=== PATIENT | female | born 1980 | race Caucasian/White ===

== ENCOUNTER 2018-11-20 22:34 | Emergency (ER) | payer OTHER ==
[~2018-11-20] VITALS: Ht 170.2 cm; Wt 107.0 kg
[~2018-11-20 22:34] MED LIST: ACHD5005 PO; BUTA1TAB55 PO; DCS100C PO; DICY10CA26 PO; DOCU100C37 PO; FAMO20TA5 PO; IBP800T PO; IBUP-1780 PO; NITR100C44 PO; OCP; OMEP40CA36 PO; ONDA4TAB11 PO; ONDA8TAB9 PO; ONDAN4ODT PO; OXYC-465 PO; PREN1TAB14 PO; PREN1TAB39; PREN1TAB71 PO; SCR1T PO; TRAM50TA2 PO; VITA1TAB17 PO
--- OUTSIDE RECORDS SUMMARY | 2018-11-20 22:40 | XMS REPORT ---
Author Author Migration, Doctor Organization [facility] Address Unknown Phone Unavailable Care Team Providers Care Fine Arts Instructor Name Role Phone Migration, Doctor Unavailable Unavailable PROBLEMS Type Condition ICD9-CM Code XPB45-PD Code Onset Dates Condition Status SNOMED Code Problem Anxiety F41.9 Active 88984796 Problem Generalized anxiety disorder F41.1 Active [id number] ALLERGIES No Information ENCOUNTERS Encounter Location Date Diagnosis [facility] [address] [address] Nov, [facility] [address] [address] Oct, Bronchitis J40 [facility] [address] [address]- 68[address] Aug, Generalized anxiety disorder F41.1 [facility] [address] [address] Jul, Oral thrush B37.0 [facility] [address] [address] Jun, Generalized anxiety disorder F41.1 [facility] [address] [address]- 6163 May, Encounter for immunization Z23 [facility] [id number] [place] [address]45- 9121 Apr, Anxiety F41.9 [facility] [address] [address]- 2013 Mar, Anxiety F41.9 [facility] [id number] [place] [address] 80507- 0714 Mar, [facility] [address] [address] Mar, Seasonal allergic rhinitis, unspecified trigger J30.2 and Cough R05 [facility] [address] [place] [address] 61625- 2630 Oct, [facility] [id number] [place] [address] 70497- 6672 Oct, Positive skin test for tuberculosis R76.11 [facility] [id number] [place] [address]16 -8422 Oct, Positive skin test for tuberculosis R76.11 [facility] [address] [place] [address] 29695- 6162 Oct, School physical exam Z02.0 ; Visit for TB skin test Z11.1 and Encounter for immunization Z23 [facility] [address] [place] [address]39 -3446 Jun, Pharyngitis due to other organism J02.8 [place] [id number] [place] [address] 82127- 2832 Feb, Constipation 564.00 [place] [address] [id number] [place] [address] 66936- 3696 Nov, [facility] [address] [place] [address] 10416- 3454 Nov, [facility] [address] [place] [address] 11720- 4076 Oct, [facility] [id number] [place] [address] 6[address]- 1956 Oct, [facility] [id number] [place] [address] 57578- 8611 Sep, [facility] [address] [place] [address] 36930- 3582 Sep, [facility] [id number] [place] [address] 32101- 6704 Aug, [facility] [place] [facility] [address] [id number] [place] [address]- 5717 Aug, [facility] [place] [facility] [address] [id number] [place] [address]- 8762 Jun, [facility] [place] [facility] [address] [id number] [place] [address]- 8848 Jun, [facility] [place] [facility] [address] [id number] [place] [address]- 2732 May, [facility] [place] [facility] [address] [id number] [place] [address]- 0800 May, [facility] [place] [facility] [address] [id number] [place] [address]- 9686 Apr, [facility] [place] [facility] [address] [id number] [place] [address]- 8046 Apr, [facility] [place] [facility] [address] [id number] [place] [address]- 4311 Mar, [facility] [place] [facility] [address] [id number] [place] [address]- 0517 Mar, [facility] [place] [facility] [address] [id number] [place] [address]- 6103 Mar, [facility] [place] [facility] [address] [id number] [place] [address]- 4533 Mar, [facility] [place] [facility] [address] [id number] [place] [address]- 0296 Mar, [facility] [place] [facility] [address] [id number] [place] [address]- 8654 Mar, [facility] [place] [facility] [address] [id number] [place] [address]- 0774 Feb, [facility] [place] [facility] [address] [id number] [place] [address]- 3244 Feb, [facility] [place] [facility] [address] [id number] [place] [address]- 2546 Jan, [facility] [address] [facility] [id number] [place] [address]- 2546 Jan, [facility] [address] [facility] [id number], [place] [address]- 2546 Jun, [facility] [address] [facility] [id number] [place] [address]- 2546 Jun, IMMUNIZATIONS No Known Immunizations SOCIAL HISTORY Never Assessed REASON FOR VISIT [facility] PLAN OF CARE VITAL SIGNS MEDICATIONS Medication Instructions Dosage Frequency Start Date End Date Duration Status trazodone 50 mg take 0.5 tablet by Oral route 1 time per day at bedtime for sleep Aug, Active Azithromycin 250 mg 2 Tablet by Oral route on day 1 then take 1 daily for 4 days take with food Oct, Active Multivitamin 1 tablet by Oral route 1 time per day Mar, Active Latuda 20 mg 1 tablet by Oral route 1 time per day for 14 days w/at least 350 calories Mar, Active NuvaRing 0.12-0.015 mg/24 hr 1 ea by Vaginal route every 4 weeks Insert ring and remove every 21 days Mar, Active PredniSONE 10 mg 1 Tablet 2 times per day for 5 days Take at 8 am and noon. Oct, Active RESULTS No Results PROCEDURES No Known procedures INSTRUCTIONS MEDICATIONS ADMINISTERED No Known Medications MEDICAL (GENERAL) HISTORY Type Description Date Surgical History DNC 2009 Surgical History 2012,2015 Hospitalization History surgeries Hospitalization History vomiting 2012
--- OUTSIDE RECORDS SUMMARY | 2018-11-20 22:41 | XMS REPORT ---
Author Author VALENTÍN TONY Organization [facility] Address [address] [place] [address] Care Team Providers Care Telemarketing Sales Representative Name Role Phone VALENTÍN TONY Unavailable PROBLEMS Type Condition ICD9-CM Code ZWB47-BO Code Onset Dates Condition Status SNOMED Code Problem Anxiety F41.9 Active [id number] ALLERGIES No Known Allergies ENCOUNTERS Encounter Location Date Diagnosis [place] [address] [address] Apr, Anxiety F41.9 [place] [address] [address]- 3161 Mar, Anxiety F41.9 [facility] [id number] [place] [address] 30688- 3311 Mar, [facility] [id number] [place] [address] 25662 -8921 Mar, Seasonal allergic rhinitis, unspecified trigger J30.2 and Cough R05 [facility] [id number] [place] [address] 20818- 3433 Oct, [facility] [id number] [place] [address] 49098- 3370 Oct, Positive skin test for tuberculosis R76.[address] [facility] IN [facility] [id number] [place] [address]29 -3016 Oct, Positive skin test for tuberculosis R76.11 [facility] [id number] [place] [address] 95316- 0456 Oct, School physical exam Z02.0 ; Visit for TB skin test Z11.1 and Encounter for immunization Z23 [facility] IN [facility] [id number] [place] [address] 83058 -2042 Jun, Pharyngitis due to other organism J02.8 [facility] [address] [place] [address] 464141- 5126 Feb, Constipation 564.00 [facility] [address] [facility] [id number]- [address] Nov, [facility] [address] [facility] [id number] [place] [address] 22962- 9931 Nov, [facility] [id number] [place] [address] 311087- 0887 Oct, [facility] [id number] [place] [address] 32049- 4259 Oct, [facility] [id number] [place] [address] 74107- 3062 Sep, [facility] [address] [place] [address] 82596- 6747 Sep, [facility] [address] [address]- 9903 Aug, [facility] [address] 9728 Aug, [facility] [address] [address]- 2861 Jun, [facility] [address] [id number] 7778 Jun, [facility] [place] [facility] [address] [facility] [id number], [place] [address]- 7339 May, [facility] [address] [facility] [id number] 9996 May, [facility] [address] [id number] [address]- 0997 Apr, [facility] [address] [address]- 5249 Apr, [facility] [address] 8790 Mar, [facility] [address], [place] [address]- 2758 Mar, [facility] [address] [address]- 8962 Mar, [facility] [address] [address]- 6584 Mar, [facility] [address] [id number]- 1418 Mar, [facility] [address] 0349 Mar, [facility] [address] 4929 Feb, [facility] [address] 8821 Feb, [facility] [address]- 6152 Jan, [facility] [address] [address] 8857 Jan, [facility] [address] [id number] [address]- 6318 Jun, [facility] [address] [id number] [address]- 1086 Jun, IMMUNIZATIONS No Known Immunizations SOCIAL HISTORY Never Assessed REASON FOR VISIT Establish Care, Concerns with high anxiety and unable to calm down when occurs, Physical form needs completed for school, [facility] PLAN OF CARE VITAL SIGNS Height 60 in 2018-04-15 Weight 150.00 lbs 2018-04-15 Temperature 98.4 degrees Fahrenheit 2018-04-15 Heart Rate 72 bpm 2018-04-15 Respiratory Rate 18 2018-04-15 BMI 29.29 kg/m2 2018-04-15 Blood pressure systolic 142 mmHg 2018-04-15 Blood pressure diastolic 90 mmHg 2018-04-15 MEDICATIONS Medication Instructions Dosage Frequency Start Date End Date Duration Status Zyrtec Allergy 10 mg Orally Once a day 1 tablet 24h Mar, May, 30 day(s) Active BusPIRone HCl 10 mg Orally Twice a day 1 tablet 12h 30 Mar, 2018 Active Fluticasone Propionate 50 MCG/ACT Nasally Once a day 2 spray in each nostril 24h Mar, 14 days Active RESULTS No Results PROCEDURES No Known procedures INSTRUCTIONS MEDICATIONS ADMINISTERED No Known Medications MEDICAL (GENERAL) HISTORY Type Description Date Surgical History DNC 2009 Surgical History 2012,2015 Hospitalization History surgeries Hospitalization History vomiting 2012
--- OUTSIDE RECORDS SUMMARY | 2018-11-20 22:41 | XMS REPORT ---
Author Author AMBER CARNEY Organization [facility] Address [address] [place] [address] Care Team Providers Care Fish Agent Name Role Phone AMBER CARNEY Unavailable PROBLEMS Type Condition ICD9-CM Code XUM10-CX Code Onset Dates Condition Status SNOMED Code Problem Anxiety F41.9 Active [id number] ALLERGIES No Known Allergies ENCOUNTERS Encounter Location Date Diagnosis [facility] [address] [address]- [address] Apr, [facility] [address] [address]- 6150 Apr, Anxiety F41.9 [facility] [id number] [place] [address] 75293- 4591 Mar, Anxiety F41.9 [facility] [address] [address]- 2673 Mar, [facility] [id number] [place] [address]19 -4700 Mar, Seasonal allergic rhinitis, unspecified trigger J30.2 and Cough R05 [facility] [id number] [place] [address] 03820- 8472 Oct, [facility] [id number] [place] [address] 15033- 6425 Oct, Positive skin test for tuberculosis R76.11 [facility] [id number] [place] [address] 83923 -7503 Oct, Positive skin test for tuberculosis R76.11 [facility] [id number] [place] [address] 84026- 2203 Oct, School physical exam Z02.0 ; Visit for TB skin test Z11.1 and Encounter for immunization Z23 [facility] [address], [place] [address] Jun, Pharyngitis due to other organism J02.8 [facility] [address], [place] [address]- 8687 Feb, Constipation 564.00 [facility] [address] [id number] [address]- 5889 Nov, [facility] [address]65[address], [place] [address]- 0738 Nov, [facility] [address] [id number], [place] [address]- 7427 Oct, [facility] [address] [id number], [place] [address]- 2760 Oct, [facility] [address], [place] [address]- 2204 Sep, [facility] [address], [place] [address]- 0238 Sep, [facility] [address], [place] [address]- 5179 Aug, [facility] [address], [place] [address]- 0465 Aug, [facility] [address], [place] [address]- 1536 Jun, [facility] [address], [place] [address]- 8731 Jun, [facility] [address], [place] [address]- 9749 May, [facility] [address], [place] [address]- 6156 May, [facility] [address], [place] [address]- 0411 Apr, [facility] [id number], [place] [address]- 4647 Apr, [facility] [address] [id number] [address]- 5021 Mar, [facility] [address] [id number], [place] [address]- 8393 Mar, [facility] [address], [place] [address]- 1177 Mar, [facility] [address], [place] [address]- 4207 Mar, [facility] [address], [place] [address]- 4620 Mar, [facility] [address], [place] [address]- 7406 Mar, [facility] [address], [place] [address]- 4433 Feb, [facility] [address], [place] [address]- 2196 Feb, [facility] [id number], [place] [address]- 4320 Jan, [facility] [id number], [place] [address]- 3482 Jan, [facility] [address] [id number] [address]- 2575 Jun, [facility] [id number], [place] [address]- 3120 Jun, IMMUNIZATIONS No Known Immunizations SOCIAL HISTORY Never Assessed REASON FOR VISIT coughing for the past week. tried some zyrtec for one noc...didnt help...so she quit taking it. kbullernestina PLAN OF CARE Activity Details Follow Up 1 Week if not better Reason:cough VITAL SIGNS Height 61 in 2018-04-05 Weight 150.8 lbs 2018-04-05 Temperature 98.3 degrees Fahrenheit 2018-04-05 Heart Rate 80 bpm 2018-04-05 Respiratory Rate 2018-04-05 BMI 28.49 kg/m2 2018-04-05 Blood pressure systolic 120 mmHg 2018-04-05 Blood pressure diastolic 68 mmHg 2018-04-05 MEDICATIONS Medication Instructions Dosage Frequency Start Date End Date Duration Status Tussin 100 MG/5ML Orally every 4 hrs 10 ml as needed 4h Mar, Mar, 03 days Active Fluticasone Propionate 50 MCG/ACT Nasally Once a day 2 spray in each nostril 24h Mar, 14 days Active RESULTS No Results PROCEDURES No Known procedures INSTRUCTIONS MEDICATIONS ADMINISTERED No Known Medications MEDICAL (GENERAL) HISTORY Type Description Date Surgical History DNC 2009 Surgical History 2012,2015 Hospitalization History surgeries Hospitalization History vomiting 2012
--- OUTSIDE RECORDS SUMMARY | 2018-11-20 22:41 | XMS REPORT ---
Author Author VALENTÍN TONY Organization [facility] Address [address] [place] [address] Care Team Providers Care Director Surface Transportation Name Role Phone VALENTÍN TONY Unavailable PROBLEMS Type Condition ICD9-CM Code TJW57-XM Code Onset Dates Condition Status SNOMED Code Problem Anxiety F41.9 Active [id number] ALLERGIES No Information ENCOUNTERS Encounter Location Date Diagnosis [place] [address] [address]- 7[address] Apr, Anxiety F41.9 [place] [address] [place] [id number] [place] [address] 26775- 9959 Mar, Anxiety F41.9 [facility] [id number] [place] [address] 0[address]30- 1961 Mar, [facility] [id number] [place] [address] 85983 -5709 Mar, Seasonal allergic rhinitis, unspecified trigger J30.2 and Cough R05 [facility] [address] [place] [id number] [place] [address] 75998- 8697 Oct, [facility] [id number] [place] [address] 73987- 1601 Oct, Positive skin test for tuberculosis R76.11 [facility]ALK IN [facility] [id number] [place] [address] 58149 -8430 Oct, Positive skin test for tuberculosis R76.11 [facility] [address] [id number] [place] [address] 95752- 3167 Oct, School physical exam Z02.0 ; Visit for TB skin test Z11.1 and Encounter for immunization Z23 [facility] [id number] [place] [address] 14075 -7561 Jun, Pharyngitis due to other organism J02.8 [facility] [address] [place] [address] 736315- 1013 Feb, Constipation 564.00 [facility] [address] [facility] [address] [id number]- 8453 Nov, [facility] [id number] [place] [address] 77698- 3123 Nov, [facility] [id number] [place] [address] 21436- 9510 Oct, [facility] [id number] [place] [address] 28229- 1986 Oct, [facility] [id number] [place] [address] 36531- 4192 Sep, [facility] [id number] [place] [address] 37876- 0992 Sep, [facility] [address], [place] [address]- 7017 Aug, [facility] [id number] [place] [address] 07465- 9476 Aug, [facility] [address], [place] [address]- 0039 Jun, [facility] [address] [id number], [place] [address]- 2419 Jun, [facility] [address] [id number], [place] [address]- 0640 May, [facility] [address] [id number], [place] [address]- 1168 May, [facility] [address] [address] [id number] 8758 Apr, [facility] [id number] [place] [address] 99244- 0097 Apr, [facility] [address] [id number]- 6467 Mar, [facility] [address] [id number], [place] [address]- 2850 Mar, [facility] [address] [id number]- 7366 Mar, [facility] [address] [id number], [place] [address]- 9653 Mar, [facility] [address] [id number]- 3552 Mar, [facility] [address] [id number]- 6221 Mar, [facility] [address] 2823 Feb, [facility] [address] 8098 Feb, [facility] [address] [address] Jan, [facility] [place] [id number] [id number] Jan, [facility] [place] [id number] [address] Jun, [facility] [place] [id number] [address] Jun, IMMUNIZATIONS No Known Immunizations SOCIAL HISTORY Never Assessed REASON FOR VISIT Requests return call PLAN OF CARE VITAL SIGNS MEDICATIONS Medication Instructions Dosage Frequency Start Date End Date Duration Status HydrOXYzine Pamoate 50 mg Orally 3 times a day 1 capsule as needed 8h Apr, 30 day(s) Active RESULTS No Results PROCEDURES No Known procedures INSTRUCTIONS MEDICATIONS ADMINISTERED No Known Medications MEDICAL (GENERAL) HISTORY Type Description Date Surgical History DNC 2009 Surgical History 2012,2015 Hospitalization History surgeries Hospitalization History vomiting 2013
--- OUTSIDE RECORDS SUMMARY | 2018-11-20 22:41 | XMS REPORT ---
Author Author AMBER CARNEY Organization [facility] Address [address] [place] [address] Care Team Providers Care Athletic Director Name Role Phone AMBER CARNEY Unavailable PROBLEMS Type Condition ICD9-CM Code TIO97-PK Code Onset Dates Condition Status SNOMED Code Problem Generalized anxiety disorder F41.1 Active 73308900 Problem Anxiety F41.9 Active 36233525 ALLERGIES No Known Allergies ENCOUNTERS Encounter Location Date Diagnosis [facility] [address] [address] Jul, Oral thrush B37.0 [facility] [address] [address] Jun, Generalized anxiety disorder F41.1 [facility] [address] [address] May, Encounter for immunization Z23 [facility] [address] [address] Apr, Anxiety F41.9 [facility] [address] [address] Mar, Anxiety F41.9 [facility] [address] [address] Mar, [facility] [address] [address] Mar, Seasonal allergic rhinitis, unspecified trigger J30.2 and Cough R05 [facility] [address] [address] Oct, [facility] [address] [address] Oct, Positive skin test for tuberculosis R76.11 [facility] [address] [facility] [id number] [address] Oct, Positive skin test for tuberculosis R76.11 [facility] [address] [address] Oct, School physical exam Z02.0 ; Visit for TB skin test Z11.1 and Encounter for immunization Z23 [facility] [address], [place] [address] Jun, Pharyngitis due to other organism J02.8 [facility] [address] [place] [id number] [place] [address] Feb, Constipation 564.00 [facility] [address] [address] Nov, [facility] [address], [place] [address] Nov, [facility] [address], [place] [address] Oct, [facility] [address], [place] [address] Oct, [facility] [address] [address] Sep, [facility] [address], [place] [address] Sep, [facility] [address], [place] [address] Aug, [facility] [address], [place] [address] 16[address] Aug, [facility] [address] [place] [address] [id number] [address] Jun, [facility] [address] [place] [id number] [place] [address] [place] [address] Jun, [facility] [place] [facility] [address] [id number] [place] [address] May, [facility] [place] [facility] [address] [id number] [place] [address] May, [facility] [place] [facility] [address] [id number] [place] [address] Apr, [facility] [place] [facility] [address] [id number] [place] [address] Apr, [facility] [place] [facility] [address] [id number] [place] [address] Mar, [facility] [place] [facility] [address] [id number] [place] [address] Mar, [facility] [place] [facility] [address] [id number] [place] [address] 40[address] Mar, [facility] [place] [facility] [address] [id number] [place] [address] Mar, [facility] [place] [facility] [address] [id number] [place] [address] 17[address] Mar, [facility] [place] [facility] [address] [id number] [place] [address] 36[address] Mar, [facility] [place] [facility] [address] [id number] [place] [address] 6[address] Feb, [facility] [place] [facility] [address] [id number] [place] [address] 0[address] Feb, [facility] [place] [facility] [address] [id number] [place] [address] Jan, [facility] [place] [facility] [address] [id number] [place] [address] 4[address] Jan, [facility] [place] [facility] [address] [id number] [place] [address] 6[address] Jun, [facility] [place] [facility] [address] [facility] [id number] [place] [address] Jun, IMMUNIZATIONS No Known Immunizations SOCIAL HISTORY Never Assessed REASON FOR VISIT sore throat/fim in mouth for a week and very fatigue. Just started Paxil two weeks ago, tongue tender and sores in mouth. Juan Luishezack DICKENS PLAN OF CARE Activity Details Follow Up if not improving with PCP or reg follow up Reason: VITAL SIGNS Height 60 in 2018-07-30 Weight 151.6 lbs 2018-07-30 Temperature 97.4 degrees Fahrenheit 2018-07-30 Heart Rate 76 bpm 2018-07-30 Respiratory Rate 20 2018-07-30 BMI 29.60 kg/m2 2018-07-30 Blood pressure systolic 130 mmHg 2018-07-30 Blood pressure diastolic 92 mmHg 2018-07-30 MEDICATIONS Medication Instructions Dosage Frequency Start Date End Date Duration Status Paroxetine HCl 20 mg Orally Once a day 1 tablet in the morning 24h Jun, 30 day(s) Active Nystatin 408003 UNIT/ML Mouth/Throat Four times a day 4 ml 6h Jul, 7 days Active Zyrtec Allergy Active Xanax 0.5 MG Orally Once a day, prn anxiety 1 tablet Jun, Active RESULTS No Results PROCEDURES No Known procedures INSTRUCTIONS MEDICATIONS ADMINISTERED No Known Medications MEDICAL (GENERAL) HISTORY Type Description Date Surgical History DNC 2009 Surgical History Hospitalization History surgeries Hospitalization History vomiting 2012
--- OUTSIDE RECORDS SUMMARY | 2018-11-20 22:41 | XMS REPORT ---
Author Author VALENTÍN TONY Organization [facility] Address [address] [place] [address] Care Team Providers Care Finishing Tunnel Operator Name Role Phone VALENTÍN TONY Unavailable PROBLEMS Type Condition ICD9-CM Code [id number] Code Onset Dates Condition Status SNOMED Code Problem Anxiety F41.9 Active 98785064 ALLERGIES No Information ENCOUNTERS Encounter Location Date Diagnosis [place] [address] [address] May, Encounter for immunization Z23 [place] [address] [address] Apr, Anxiety F41.9 [place] [address] [address] Mar, Anxiety F41.9 [place] [address] [address] Mar, [facility] [address] [place] [id number] [place] [address] Mar, Seasonal allergic rhinitis, unspecified trigger J30.2 and Cough R05 [place] [address] [place] [id number] [place] [address] Oct, [place] [address] [place] [id number] [place] [address] Oct, Positive skin test for tuberculosis R76.11 [facility] [address] [place] [id number] [place] [address] Oct, Positive skin test for tuberculosis R76.11 [place] [address] [place] [id number] [place] [address] Oct, School physical exam Z02.0 ; Visit for TB skin test Z11.1 and Encounter for immunization Z23 [facility] [address], [place] [address] Jun, Pharyngitis due to other organism J02.8 [facility] [address], [place] [address] Feb, Constipation 564.00 [facility] [address] [id number] [place] [address] Nov, [facility] [address], [place] [address] Nov, [facility] [address] [id number] [place] [address] Oct, [facility] [address] [address] [id number] [place] [address] Oct, [facility] [address] [place] [address] Sep, [facility] [address], [place] [address] Sep, [facility] [address], [place] [address] Aug, [facility] [address], [place] [address] Aug, [facility] [address], [place] [address] Jun, [facility] [address], [place] [address] 8[address] Jun, [facility] [address], [place] [address] May, [facility] [address], [place] [address] May, [facility] [address] [address] [id number], [place] [address] Apr, [facility] [address] [facility] [id number], [place] [address] Apr, [facility] [address] [facility] [id number], [place] [address] Mar, [facility] [address] [place] [address] [id number], [place] [address] Mar, [facility] [address] [facility] [id number], [place] [address] 79[address] Mar, [facility] [address] [facility] [id number], [place] [address] 12[address] Mar, [facility] [address] [facility] [id number], [place] [address] 39[address] Mar, [facility] [address], [place] [address] 8[address] Mar, [facility] [address] [place] [address] [id number], [place] [address]- 5[address] Feb, [facility] [address], [place] [address]- 12[address] Feb, [facility] [address] [place] [address] [id number], [place] [address] 6[address] Jan, [facility] [address] [place] [address] [id number], [place] [address]- 2767 Jan, [facility] [address] [place] [address] [id number], [place] [address] Jun, [facility] [address] [place] [address] [id number], [place] [address] Jun, IMMUNIZATIONS Vaccine Route Administration Date Status FLULAVAL QUAD 0.5ML (6 MO & UP) 2017 IM Intramuscular Jun 08, 2018 Administered SOCIAL HISTORY Never Assessed REASON FOR VISIT Flu shot PLAN OF CARE VITAL SIGNS MEDICATIONS Unknown Medications RESULTS No Results PROCEDURES Procedure Date Ordered Result Body Site FLULAVAL QUAD 0.5ML (6 MO AND UP) 2017Jun 08, 2018 SINGLE IMMUNIZATION ADMIN Jun 08, 2018 INSTRUCTIONS MEDICATIONS ADMINISTERED No Known Medications MEDICAL (GENERAL) HISTORY Type Description Date Surgical History DNC 2009 Surgical History 2012,2015 Hospitalization History surgeries Hospitalization History vomiting 2013
--- OUTSIDE RECORDS SUMMARY | 2018-11-20 22:41 | XMS REPORT ---
Author Author NIKOS BHATIA [facility] Address [address] [place] [address] Care Team Providers Care Ems Manager Name Role Phone SRIRAM NIKOS Unavailable PROBLEMS Type Condition ICD9-CM Code XWM80-LW Code Onset Dates Condition Status SNOMED Code Problem Anxiety F41.9 Active 47592202 ALLERGIES No Information ENCOUNTERS Encounter Location Date Diagnosis [facility] [address] [address] Apr, [facility] [address] [address] Apr, Anxiety F41.9 [facility] [address] [address] Mar, Anxiety F41.9 [place] [address] [address] Mar, [facility] [address] [place] [id number] [place] [address] Mar, Seasonal allergic rhinitis, unspecified trigger J30.2 and Cough R05 [facility] [address] [place] [id number] [place] [address] Oct, [facility] [address] [place] [address] [id number] [place] [address] Oct, Positive skin test for tuberculosis R76.11 [facility] [address] [id number] [place] [address] Oct, Positive skin test for tuberculosis R76.11 [facility] [address] [place] [address] [id number] [place] [address] Oct, School physical exam Z02.0 ; Visit for TB skin test Z11.1 and Encounter for immunization Z23 [facility] [address] [address] Jun, Pharyngitis due to other organism J02.8 [facility] [address] [address]- 9[address] Feb, Constipation 564.00 [facility] [address] [id number] [place] [address] Nov, [facility] [address] [address] 38[address] Nov, [facility] [address] [address] [id number] [place] [address]- [address]69 Oct, [facility] [address] [id number] [address]- 8253 Oct, [facility] [address] [place] [address]- 7946 Sep, [facility] [address] [address]- 5[address] Sep, [facility] [address] [address]- 8[address] Aug, [facility] [address] [address]- 30[address] Aug, [facility] [address] [address]- 70[address] Jun, [facility] [address] [address]- 1517 Jun, [facility] [address] [address] [id number] [address]- 1226 May, [facility] [address] [address]- 6960 May, [facility] [address] [address] [id number] [address]- 5208 Apr, [facility] [address] [address]- 6425 Apr, [facility] [address] [address]- 2314 Mar, [facility] [address] [address]- 7[address] Mar, [facility] [address] [address]- 9795 Mar, [facility] [address] [address]- 7342 Mar, [facility] [address] [address]- 5281 Mar, [facility] [address] [address]- 99[address] Mar, [facility] [address] [address]- 1613 Feb, [facility] [address] [address]- 2[address] Feb, [facility] [address] [address]- 1684 Jan, [facility] [address] [place] [id number] [address]- 2184 Jan, [facility] [address] [address]- 3[address] Jun, [facility] [address] [address]- 2537 Jun, IMMUNIZATIONS No Known Immunizations SOCIAL HISTORY Never Assessed REASON FOR VISIT cough PLAN OF CARE VITAL SIGNS MEDICATIONS Medication Instructions Dosage Frequency Start Date End Date Duration Status Zyrtec Allergy 10 mg Orally Once a day 1 tablet 24h Mar, May, 30 day(s) Active RESULTS No Results PROCEDURES No Known procedures INSTRUCTIONS MEDICATIONS ADMINISTERED No Known Medications MEDICAL (GENERAL) HISTORY Type Description Date Surgical History DNC 2009 Surgical History 2012,2015 Hospitalization History surgeries Hospitalization History vomiting 2013
--- OUTSIDE RECORDS SUMMARY | 2018-11-20 22:41 | XMS REPORT ---
Author Author VALENTÍN TONY Organization [facility] Address [address] [place] [address] Care Team Providers Care Screening Representative Name Role Phone VALENTÍN TONY Unavailable PROBLEMS Type Condition ICD9-CM Code YOQ96-NO Code Onset Dates Condition Status SNOMED Code Problem Generalized anxiety disorder F41.1 Active 15333166 Problem Anxiety F41.9 Active 05570671 ALLERGIES No Known Allergies ENCOUNTERS Encounter Location Date Diagnosis [place] [address] [address] Jun, Generalized anxiety disorder F41.1 [place] [address] [address] May, Encounter for immunization Z23 [facility] [address] [address] Apr, Anxiety F41.9 [place] [address] [address] Mar, Anxiety F41.9 [place] [address] [address]- [address] Mar, [facility] [address] [address] Mar, Seasonal allergic rhinitis, unspecified trigger J30.2 and Cough R05 [facility] [address] [address] Oct, [facility] [address] [address] Oct, Positive skin test for tuberculosis R76.11 [facility] [address] [address] Oct, Positive skin test for tuberculosis R76.11 [facility] [address]005[address] [address] Oct, School physical exam Z02.0 ; Visit for TB skin test Z11.1 and Encounter for immunization Z23 [facility] [address] [address] Jun, Pharyngitis due to other organism J02.8 [facility] [address] [address]- 9[address] Feb, Constipation 564.00 [facility] [address] Nov, [facility] [address]005[address] [address]- 407[address] Nov, [facility] [address] [address]- 12[address] Oct, [facility] [address] [address]- 2449 Oct, [facility] [address] [address]- 4215 Sep, [facility] [address] [address]- 4567 Sep, [facility] [address] [address]- 0[address] Aug, [facility] [address] [place] [id number] [address] Aug, [facility] [address] [address]- 7165 Jun, [facility] [address] [address] Jun, [facility] [address] May, [facility] [address] [facility] [id number] [address]- [address] 14 May, [address] [facility] [address] [id number] [address]- 4[address] Apr, [facility] [address] [facility] [id number] [address]- 1373 Apr, [facility] [address] [id number] [address]- 4[address] Mar, [facility] [address] [id number] [place] [address]- 7[address] Mar, [facility] [address] [facility] [id number] [place] [address]- 9959 Mar, [facility] [address] [facility] [id number] [place] [address]- 9[address] Mar, [facility] [address] [facility] [id number] [address]- 28[address] Mar, [facility] [address] [facility] [id number] [place] [address]- 5[address] Mar, [facility] [address] [facility] [id number] [place] [address]- 5[address] Feb, [facility] [address] [facility] [id number] [address]- 6[address] Feb, [facility] [address] [facility] [id number] [place] [address]- 2682 Jan, [facility] [address] [facility] [id number] [place] [address]- 2036 Jan, [facility] [address] [facility] [id number] [place] [address]- 7[address] Jun, [facility] [address] [facility] [id number] [place] [address]- [address] Jun, IMMUNIZATIONS No Known Immunizations SOCIAL HISTORY Never Assessed REASON FOR VISIT Anxiety, PT feels the hydroxyzine has been giving her a lag feeling the next day. -Ashok DICKENS PLAN OF CARE Activity Details Follow Up 4 Weeks Reason: VITAL SIGNS Height 60 in 2018-07-16 Weight 151.1 lbs 2018-07-16 Temperature 97.7 degrees Fahrenheit 2018-07-16 Heart Rate 76 bpm 2018-07-16 Respiratory Rate 18 2018-07-16 Oximetry 97 % 2018-07-16 BMI 29.51 kg/m2 2018-07-16 Blood pressure systolic 136 mmHg 2018-07-16 Blood pressure diastolic 70 mmHg 2018-07-16 MEDICATIONS Medication Instructions Dosage Frequency Start Date End Date Duration Status Paroxetine HCl 20 mg Orally Once a day 1 tablet in the morning 24h Jun, 30 day(s) Active Xanax 0.5 MG Orally Once a day, prn anxiety 1 tablet Jun, Active Fluticasone Propionate 50 MCG/ACT Nasally Once a day 2 spray in each nostril 24h Mar, 14 days Active RESULTS No Results PROCEDURES No Known procedures INSTRUCTIONS MEDICATIONS ADMINISTERED No Known Medications MEDICAL (GENERAL) HISTORY Type Description Date Surgical History DNC 2009 Surgical History 2012,2015 Hospitalization History surgeries Hospitalization History vomiting 2012
--- OUTSIDE RECORDS SUMMARY | 2018-11-20 22:42 | XMS REPORT ---
Author Author ALEXA SIMON [facility] Address [address] [place] [address] Care Team Providers Care Client Solutions Director Name Role Phone ALEXA SIMON Unavailable PROBLEMS Type Condition ICD9-CM Code NCG63-PL Code Onset Dates Condition Status SNOMED Code Problem Constipation 564.00 Active 56690839 Problem Other and unspecified bipolar disorders 296.89 Active 04359977 Problem Unspecified episodic mood disorder 296.90 Active 687714803 Problem Acute sinusitis, unspecified 461.9 Active 22710067 Problem Cough 786.2 Active 43883039 Problem Social phobia 300.23 Active 30261881 Problem Attention deficit disorder of childhood without mention of hyperactivity 314.00 Active 25605343 ALLERGIES No Information ENCOUNTERS Encounter Location Date Diagnosis [facility] [address] [address] Oct, [place] [address] [address] Oct, Positive skin test for tuberculosis R76.11 [facility] IN [facility] [address] [place] [id number] [place] [address] Oct, Positive skin test for tuberculosis R76.11 [facility] [address] [place] [id number] [place] [address] Oct, School physical exam Z02.0 ; Visit for TB skin test Z11.1 and Encounter for immunization Z23 [facility] IN [facility] [address] [address] Jun, Pharyngitis due to other organism J02.8 [place] [address] [address] Feb, Constipation 564.00 [facility] [place] [facility] [address] [id number] [place] [address] 14 Nov, 2014 [facility] [place] [facility] [address] [id number] [place] [address] 6[address] Nov, [facility] [place] [facility] [address] [id number] [place] [address] 54[address] Oct, [facility] [place] [facility] [address] [id number] [place] [address] 6828 Oct, [facility] [place] [facility] [address] [id number] [place] [address] 0449 Sep, [facility] [place] [facility] [address] [id number] [place] [address] 404[address] Sep, [facility] [place] [facility] [address] [id number] [place] [address] 98[address] Aug, [facility] [place] [facility] [address] [id number] [place] [address] 78[address] Aug, [facility] [place] [facility] [address] [id number] [place] [address] 0[address] Jun, [facility] [place] [facility] [address] [id number] [place] [address] 4738 Jun, [facility] [place] [facility] [address] [id number] [place] [address] 240[address] May, [facility] [place] [facility] [address] [id number] [place] [address] 4175 May, [facility] [place] [facility] [address] [id number] [place] [address]- 3728 Apr, [facility] [place] [facility] [address] [id number] [place] [address] 3430 Apr, [facility] [place] [facility] [address] [id number] [place] [address] 3[address] Mar, [facility] [place] [facility] [address] [id number] [address] 133[address] Mar, [facility] [address] [facility] [id number], [place] [address] 8[address] Mar, [facility] [address] [facility] [id number], [place] [address] 09[address] Mar, [facility] [address] [facility] [id number], [place] [address]- 6[address] Mar, [facility] [address] [facility] [id number], [place] [address] 22[address] Mar, [facility] [address] [facility] [id number], [place] [address] 8[address] Feb, [facility] [address] [facility] [id number], [place] [address] 5[address] Feb, [facility] [address] [facility] [id number], [place] [address]- 7978 Jan, [facility] [address] [facility] [id number] [address] 8609 Jan, [facility] [address] [facility] [id number][place] [address] Jun, [facility] [address] [facility] [id number][place] [address] Jun, IMMUNIZATIONS No Known Immunizations SOCIAL HISTORY Never Assessed REASON FOR VISIT Lab PLAN OF CARE VITAL SIGNS MEDICATIONS Unknown Medications RESULTS No Results PROCEDURES Procedure Date Ordered Result Body Site LAB NOT BILLED BY [facility] November 09, 2017 X-RAY EXAM CHEST 2 VIEWS November 09, 2017 VENIPUNCT, ROUTINE* November 09, 2017 INSTRUCTIONS MEDICATIONS ADMINISTERED No Known Medications MEDICAL (GENERAL) HISTORY Type Description Date Surgical History DNC 2009 Surgical History 2013 Hospitalization History surgeries Hospitalization History vomitting 2012
--- OUTSIDE RECORDS SUMMARY | 2018-11-20 22:42 | XMS REPORT ---
Author Author ALEXA SIMON [facility] Address [address] [place] [address] Care Team Providers Care Advanced Manager Name Role Phone ALEXA SIMON Unavailable PROBLEMS Type Condition ICD9-CM Code ZYR28-DB Code Onset Dates Condition Status SNOMED Code Problem Constipation 564.00 Active 56659393 Problem Other and unspecified bipolar disorders 296.89 Active 48371540 Problem Unspecified episodic mood disorder 296.90 Active 509441599 Problem Acute sinusitis, unspecified 461.9 Active 00564612 Problem Cough 786.2 Active 38417613 Problem Social phobia 300.23 Active 45361518 Problem Attention deficit disorder of childhood without mention of hyperactivity 314.00 Active 91307938 ALLERGIES No Known Allergies ENCOUNTERS Encounter Location Date Diagnosis [facility] [address] [address] Oct, [place] [address] [address] Oct, Positive skin test for tuberculosis R76.11 [facility] IN [facility] [address] [place] [id number] [place] [address] Oct, Positive skin test for tuberculosis R76.11 [facility] [address] [place] [id number] [place] [address] Oct, School physical exam Z02.0 ; Visit for TB skin test Z11.1 and Encounter for immunization Z23 [facility] IN [facility] [address] [address] Jun, Pharyngitis due to other organism J02.8 [place] [address] [address] Feb, Constipation 564.00 [facility] [place] [facility] [address] [id number] [place] [address] 14 Nov, 2014 [facility] [place] [facility] [address] [id number] [place] [address]- 6473 Nov, [facility] [place] [facility] [address] [id number] [place] [address]- 3412 Oct, [facility] [place] [facility] [address] [id number] [place] [address]- 7433 Oct, [facility] [place] [facility] [address] [id number] [place] [address]- 2689 Sep, [facility] [place] [facility] [address] [id number] [place] [address]- 3615 Sep, [facility] [place] [facility] [address] [id number] [place] [address]- 3440 Aug, [facility] [place] [facility] [address] [id number] [place] [address]- 3524 Aug, [facility] [place] [facility] [address] [id number] [place] [address]- 8463 Jun, [facility] [place] [facility] [address] [id number] [place] [address]- 7604 Jun, [facility] [place] [facility] [address] [id number] [place] [address]- 7045 May, [facility] [place] [facility] [address] [id number] [place] [address]- 2522 May, [facility] [place] [facility] [address] [id number] [place] [address]- 9214 Apr, [facility] [place] [facility] [address] [id number] [place] [address]- 2010 Apr, [facility] [place] [facility] [address] [id number] [place] [address]- 8078 Mar, [facility] [place] [facility] [address] [id number] [address] 25[address] Mar, [facility] [address] [place] [id number] [address] 0[address] Mar, [facility] [address] [place] [id number] [address] 120[address] Mar, [facility] [address] [place] [id number] [address] 48[address] Mar, [facility] [address] [place] [id number] [address] 5907 Mar, [facility] [address] [place] [id number] [address] 6633 Feb, [facility] [address]65100[place] [address]- 80[address] Feb, [facility] [address]00565100[place] [address] Jan, [facility] [address]65100[place] [address] Jan, [facility] [address] [place] [id number] [address]- 0[address] Jun, [facility] [address] [place] [id number] [address] 8660 Jun, IMMUNIZATIONS Vaccine Route Administration Date Status VARICELLA SC Subcutaneous November 05, 2017 Administered FLULAVAL QUAD (6 MO AND UP) 2017 IM Intramuscular November 05, 2017 Administered HEP B (ADULT) IM Intramuscular November 05, 2017 Administered SOCIAL HISTORY Never Assessed REASON FOR VISIT Wanting lab work, pt is needing bloodwork for immunization (titers) for RT program-AHarrymanRN, Hep B, MMR, Varicella, TB Test, flu shot PLAN OF CARE Activity Details Follow Up prn. 48-72 hours Reason: VITAL SIGNS Height 61 in 2017-11-05 Weight 150.7 lbs 2017-11-05 Temperature 97.7 degrees Fahrenheit 2017-11-05 Heart Rate 78 bpm 2017-11-05 Respiratory Rate 18 2017-11-05 BMI 28.47 kg/m2 2017-11-05 Blood pressure systolic 116 mmHg 2017-11-05 Blood pressure diastolic 72 mmHg 2017-11-05 MEDICATIONS Medication Instructions Dosage Frequency Start Date End Date Duration Status - Orally Once a day 1 tablet 24h Not-Taking NuvaRing 0.12-0.015 mg/24 hr 1 ea by Vaginal route every 4 weeks Insert ring and remove every 21 days Mar, Not-Taking Multivitamin 1 tablet by Oral route 1 time per day Mar, Not-Taking RESULTS No Results PROCEDURES Procedure Date Ordered Result Body Site TB INTRADERMAL 2017-11-05 N/A IMMUNIZATION ADMIN, EACH ADD (please include units) November 05, 2017 SINGLE IMMUNIZATION ADMIN November 05, 2017 LAB NOT BILLED BY [facility] November 05, 2017 HEP B (ADULT) November 05, 2017 TB INTRADERMAL TEST November 05, 2017 FLULAVAL QUAD (6 MO AND UP) 2017 November 05, 2017 VARICELLA November 05, 2017 INSTRUCTIONS MEDICATIONS ADMINISTERED No Known Medications MEDICAL (GENERAL) HISTORY Type Description Date Surgical History DNC 2009 Surgical History 2012 Hospitalization History surgeries Hospitalization History vomitting 2012
--- OUTSIDE RECORDS SUMMARY | 2018-11-20 22:42 | XMS REPORT ---
Author Author ALEXA SIMON [facility] Address [address] [place] [address] Care Team Providers Care Seed Expert Name Role Phone ALEXA SIMON Unavailable PROBLEMS Type Condition ICD9-CM Code VRY36-GQ Code Onset Dates Condition Status SNOMED Code Problem Constipation 564.00 Active 42862430 Problem Other and unspecified bipolar disorders 296.89 Active 70783847 Problem Unspecified episodic mood disorder 296.90 Active 997758415 Problem Acute sinusitis, unspecified 461.9 Active 44505456 Problem Cough 786.2 Active 19964210 Problem Social phobia 300.23 Active 82143831 Problem Attention deficit disorder of childhood without mention of hyperactivity 314.00 Active 42315069 ALLERGIES No Information ENCOUNTERS Encounter Location Date Diagnosis [facility] [place] [address] [address] Oct, [place] [address] [address] Oct, Positive skin test for tuberculosis R76.11 [facility] [address] [place] [id number] [place] [address] Oct, Positive skin test for tuberculosis R76.11 [facility] [place] [address] [place] [id number] [place] [address] Oct, School physical exam Z02.0 ; Visit for TB skin test Z11.1 and Encounter for immunization Z23 [facility] [address] [address] Jun, Pharyngitis due to other organism J02.8 [place] [address] [address] Feb, Constipation 564.00 [facility] [place] [facility] [address] [id number] [place] [address]- [address] 14 Nov, 2014 [facility] [place] [facility] [address] [id number] [place] [address]- 6832 Nov, [facility] [place] [facility] [address] [id number] [place] [address]- 2781 Oct, [facility] [place] [facility] [address] [id number] [place] [address]- 2742 Oct, [facility] [place] [facility] [address] [id number] [place] [address]- 0900 Sep, [facility] [place] [facility] [address] [id number] [place] [address]- 7476 Sep, [facility] [place] [facility] [address] [id number] [place] [address]- 2027 Aug, [facility] [place] [facility] [address] [id number] [place] [address]- 3437 Aug, [facility] [place] [facility] [address] [id number] [place] [address]- 7015 Jun, [facility] [place] [facility] [address] [id number] [place] [address]- 7664 Jun, [facility] [place] [facility] [address] [id number] [place] [address]- 3333 May, [facility] [place] [facility] [address] [id number] [place] [address]- 3755 May, [facility] [place] [facility] [address] [id number] [place] [address]- 4414 Apr, [facility] [place] [facility] [address] [id number] [place] [address]- 9658 Apr, [facility] [place] [facility] [address] [id number] [place] [address]- 1139 Mar, [facility] [place] [facility] [address] [id number], [place] [address]- 9200 Mar, [facility] [place] [address] [facility] [id number][place] Mar, [facility] [place] [address] [facility] [id number], [place] [address]- 0239 Mar, [facility] [place] [address] [facility] [id number], [place] [address]- 98[address] Mar, [facility] [place] [address] [facility] [id number][place]- [address] Mar, [facility] [place] [address] [facility] [id number], [place] [address]- 5857 Feb, [facility] [place] [address] [facility] [id number][place] [address] Feb, [facility] [place] [address]00565100[place], [place] [address]- 9[address] Jan, [facility] [place] [address] [place] [id number], [place] [address]- 4[address] Jan, [facility] [place] [address] [place] [id number], [place] [address]- 70[address] Jun, [facility] [place] [address] [place] [id number], [place] [address]- 82[address] Jun, IMMUNIZATIONS No Known Immunizations SOCIAL HISTORY Never Assessed REASON FOR VISIT TB PLAN OF CARE VITAL SIGNS MEDICATIONS Unknown Medications RESULTS No Results PROCEDURES No Known procedures INSTRUCTIONS MEDICATIONS ADMINISTERED No Known Medications MEDICAL (GENERAL) HISTORY Type Description Date Surgical History DNC 2009 Surgical History 2013 Hospitalization History surgeries Hospitalization History vomitting 2012
--- OUTSIDE RECORDS SUMMARY | 2018-11-20 22:42 | XMS REPORT ---
Author VALENTÍN Carty Organization [employer] Address Unknown Phone Unavailable Care Team Providers Care Religion Teacher Name Role Phone VALENTÍN TONY CP Unavailable Allergies, Adverse Reactions, Alerts Substance Reaction Event Type N.K.D.A. Info Not Available Non Drug Allergy Problems Problem Type Condition Code Onset Dates Condition Status Assessment Pharyngitis due to other organism J02.8 Active Problem Social phobia 300.23 Active Problem Other and unspecified bipolar disorders 296.89 Active Problem Attention deficit disorder of childhood without mention of hyperactivity 314.00 Active Problem Unspecified episodic mood disorder 296.90 Active Problem Constipation 564.00 Active Problem Acute sinusitis, unspecified 461.9 Active Problem Cough 786.2 Active Medications Medication Code System Code Instructions Start Date End Date Status Dosage Keflex [facility] [address]-20 500 MG Orally 3 times a day Jul 12, 2016 Jul 22, 2016 1 capsule [facility] [address] - Orally Once a day 1 tablet Procedures Procedure Coding System Code Date Office Visit, Est Pt., Level 3 CPT-4 29546 Jul 12, 2016 Vital Signs Date/Time: Jul 12, 2016 Cardiac Monitoring Heart Rate 80 bpm Weight 160.8 lbs Height 61 in BMI 30.38 Index Blood Pressure Diastolic 78 mmHg Blood Pressure Systolic 108 mmHg Results No Known Results Summary Purpose [employer] Submission
--- OUTSIDE RECORDS SUMMARY | 2018-11-20 22:42 | XMS REPORT ---
Author Author ALEXA SIMON [facility] Address [address] [place] [address] Care Team Providers Care Administrative Staff Supervisor Name Role Phone ALEXA SIMON Unavailable PROBLEMS Type Condition ICD9-CM Code PFX17-VW Code Onset Dates Condition Status SNOMED Code Problem Constipation 564.00 Active 65459619 Problem Other and unspecified bipolar disorders 296.89 Active 95932308 Problem Unspecified episodic mood disorder 296.90 Active 954197811 Problem Acute sinusitis, unspecified 461.9 Active 62084422 Problem Cough 786.2 Active 91119992 Problem Social phobia 300.23 Active 78766964 Problem Attention deficit disorder of childhood without mention of hyperactivity 314.00 Active 19171195 ALLERGIES No Information ENCOUNTERS Encounter Location Date Diagnosis [facility] [address] [address] Oct, [place] [address] [address] Oct, Positive skin test for tuberculosis R76.11 [facility] IN [facility] [address] [place] [id number] [place] [address] Oct, Positive skin test for tuberculosis R76.11 [facility] [address] [place] [id number] [place] [address] Oct, Visit for TB skin test Z11.1 ; School physical exam Z02.0 and Encounter for immunization Z23 [facility] IN [facility] [address] [address] Jun, Pharyngitis due to other organism J02.8 [place] [address] [address] Feb, Constipation 564.00 [facility] [place] [facility] [address] [id number] [place] [address]- 12[address] 14 Nov, 2014 [facility] [place] [facility] [address] [id number] [place] [address]- 9680 Nov, [facility] [place] [facility] [address] [id number] [place] [address]- 8636 Oct, [facility] [place] [facility] [address] [id number] [place] [address]- 8033 Oct, [facility] [place] [facility] [address] [id number] [place] [address]- 5141 Sep, [facility] [place] [facility] [address] [id number] [place] [address]- 5458 Sep, [facility] [place] [facility] [address] [id number] [place] [address]- 3457 Aug, [facility] [place] [facility] [address] [id number] [place] [address]- 3224 Aug, [facility] [place] [facility] [address] [id number] [place] [address]- 4940 Jun, [facility] [place] [facility] [address] [id number] [place] [address]- 6156 Jun, [facility] [place] [facility] [address] [id number] [place] [address]- 1098 May, [facility] [place] [facility] [address] [id number] [place] [address]- 7798 May, [facility] [place] [facility] [address] [id number] [place] [address]- 4930 Apr, [facility] [place] [facility] [address] [id number] [place] [address]- 6600 Apr, [facility] [place] [facility] [address] [id number] [place] [address]- 1041 Mar, [facility] [place] [facility] [address] [id number], [place] [address]- 7456 Mar, [facility] [address] [facility] [id number] [address] Mar, [facility] [address] [facility] [id number], [place] [address]- 3504 Mar, [facility] [address] [facility] [id number], [place] [address]- 1618 Mar, [facility] [address] [facility] [id number], [place] [address]- 9867 Mar, [facility] [address] [facility] [id number], [place] [address]- 99[address] Feb, [facility] [address] [facility] [id number][place] [address] Feb, [facility] [address]00565[address], [place] [address]- 290[address] Jan, [facility] [address] [facility] [id number], [place] [address]- 3[address] Jan, [facility] [address] [facility] [id number], [place] [address]- 120[address] Jun, [facility] [address] [place] [id number], [place] [address]- 49[address] Jun, IMMUNIZATIONS No Known Immunizations SOCIAL HISTORY Never Assessed REASON FOR VISIT chest x-ray results PLAN OF CARE VITAL SIGNS MEDICATIONS Unknown Medications RESULTS No Results PROCEDURES No Known procedures INSTRUCTIONS MEDICATIONS ADMINISTERED No Known Medications MEDICAL (GENERAL) HISTORY Type Description Date Surgical History DNC 2009 Surgical History 2013 Hospitalization History surgeries Hospitalization History vomitting 2012
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
[2018-11-20] MEDS ORDERED: RX-CYCLOBENZAPRINE 10 MG (FLEXERIL) TAB PPK#3 PO STA (23:48)
[2018-11-20] MEDS ORDERED: CYCL10TA9 PO (23:50)
[2018-11-20] MEDS ORDERED: METH4TAB PO (23:50)
--- NOTE | 2018-11-20 23:51 | ED General ---
General Chief Complaint: Chest Wall/Rib Pain Stated Complaint: RIB PAIN Nursing Triage Note: PT AMB TO ROOM #4 W/O DIFIFCULTY. A&OX4. C/O LT SIDED CHEST WALL DISCOMFORT. REPORTS PAIN UPON MOVEMENT TO LT ARM AND WHILE TAKING A DEEP BREATH. PT REPORTS DISCOMFORT BEGAN AFTER "COUGHING FIT" EXPERIENCED ON 11/11/18. INITIAL O2 SAT 99% Nursing Sepsis Screen: No Definite Risk Allergies and Home Medications Allergies Coded Allergies: No Known Drug Allergies (Unverified , 07/17/16) Home Medications Docusate Sodium 100 Mg Capsule, 100 MG PO BID Prescribed by: RADHA SAAVEDRA on 07/22/16 0732 Ibuprofen 800 Mg Tablet, 800 MG PO Q6H Prescribed by: RADHA SAAVEDRA on 07/22/16 0732 Oxycodone HCl/Acetaminophen 1 Each Tablet, 1-2 TAB PO Q4H PRN for PAIN Prescribed by: RADHA SAAVEDRA on 07/22/16 0732 Vit/Iron Fumarate/FA 1 Each Tablet, 1 EACH PO DAILY, (Reported) Vitamin B Complex 1 Each Tablet, 1 EACH PO DAILY, (Reported) Past Cnglpji-Nqsifu-Intqdn Hx Patient Social History Alcohol Use: Denies Use Recreational Drug Use: No Smoking Status: Current Everyday Smoker Type Used: Cigarettes 2nd Hand Smoke Exposure: Yes Recent Foreign Travel: No Contact w/Someone Who Travel: No Recent Infectious Disease Expo: No Recent Hopitalizations: No Immunizations Up To Date Tetanus Booster (TDap): More than 5yrs Date of Influenza Vaccine: Jun 17, 2016 Seasonal Allergies Seasonal Allergies: No Past Medical History Surgeries: Yes (D&C) Section Respiratory: No Cardiac: No Neurological: Yes Reproductive Disorders: No Female Reproductive Disorders: Denies Sexually Transmitted Disease: No HIV/AIDS: No Gastrointestinal: Yes (OCC WITH ) Gastroesophageal Reflux Musculoskeletal: No Endocrine: No Loss of Vision: Bilateral Hearing Impairment: Denies Cancer: No Psychosocial: Yes (HX OF -MILD) Integumentary: No Blood Disorders: No Adverse Reaction/Blood Tranf: No (N/A) Family Medical History Cardiovascular disease 19 MOTHER FH: diverticulitis 19 FATHER Hypertension 19 FATHER 19 MOTHER Myocardial infarction 19 MOTHER No Pertinent Family Hx Physical Exam Vital Signs Vital Signs - First Documented 11/20/18 22:50 Temp 97.6 Pulse 87 Resp 16 B/P (MAP) 115/87 (96) Pulse Ox 99 O2 Delivery Room Air Capillary Refill : Less Than 3 Seconds Height, Weight, BMI Height: 5'7.00" Weight: 236lbs. 2.0oz. 107.935715rg; 31.7 BMI Method:Stated Progress/Results/Core Measures Suspected Sepsis Recent Fever Within 48 Hours: No Infection Criteria Present: None New/Unexplained Altered Menta: No Sepsis Screen: No Definite Risk SIRS Temperature:97.6 Pulse: 87 Respiratory Rate: 16 Blood Pressure 115 /87 Mean: 96 Results/Orders My Orders Orders - JOSY JAMES DO Chest Pa/Lat (2 View) (11/20/18 23:01) Ribs, Left 2-3 Views (11/20/18 23:01) Rx-Cyclobenzaprine Tablet (Rx-Flexeril T (11/20/18 23:48) Ketorolac Injection (Toradol Injection) (11/21/18 00:00) Vital Signs/I&O 11/20/18 22:50 Temp 97.6 Pulse 87 Resp 16 B/P (MAP) 115/87 (96) Pulse Ox 99 O2 Delivery Room Air Capillary Refill : Less Than 3 Seconds Blood Pressure Mean: 96 Departure Impression Primary Impression: Left-sided chest wall pain Disposition: HOME, SELF-CARE Condition: Stable Departure-Patient Inst. Referrals: [facility]/K (PCP/Family) Primary Care Physician Patient Instructions: Costochondritis (DC) Add. Discharge Instructions: ALTERNATE ICE AND HEAT TO AREA AT 20 MINUTE INTERVALS ACTIVITIES TOLERATED FREQUENT DEEP BREATHS FOLLOW UP WITH YOUR DR IN 3-4 DAYS IF NO BETTER, RETURN TO ER IF WORSE All discharge instructions reviewed with patient and/or family. Voiced understanding. Scripts Cyclobenzaprine HCl (Cyclobenzaprine HCl) 10 Mg Tablet 10 MG PO Q8H, #15 TAB Prov: JOSY JAMES DO 11/20/18 Methylprednisolone (Medrol) 4 Mg Tab.ds.pk 4 MG PO UD, #1 PKG Prov: JOSY JAMES DO 11/20/18 JOSY JAMES DO Nov 20, 2018 23:50
[2018-11-21] MEDS ORDERED: KETOROLAC 60 MG/2 ML VIAL IM ONE
[2018-11-21 00:02] VITALS: BP 129/91
--- NOTE | 2018-11-21 07:46 | Diagnostic Imaging Report ---
INDICATION: Cough and rib pain. PA and lateral views were obtained. FINDINGS: The heart size, mediastinal configuration, and pulmonary vascularity are within normal limits. There is no pleural effusion, pneumothorax, or pneumonia. The osseous structures are unremarkable. IMPRESSION: No acute cardiopulmonary abnormality. Dictated by: Dictated on workstation # [id number]
--- NOTE | 2018-11-21 08:35 | Diagnostic Imaging Report ---
INDICATION: Left-sided rib pain. COMPARISON: Chest radiograph performed concurrently. TECHNIQUE: 3 views of the left ribs were obtained. FINDINGS AND IMPRESSION: 1. No left-sided pneumothorax, pleural effusion or pulmonic contusion. 2. No acute left-sided rib fracture. Dictated by: Dictated on workstation # [id number]
== END 2018-11-21 00:02 | disposition home or self-care (01) ==
LOC: EDUNIT# 22:34 → ER 22:35
DX: R07.89 Other chest pain (principal); K21.9 Gastro-esophageal reflux disease without esophagitis; F17.210 Nicotine dependence, cigarettes, uncomplicated; Z82.49 Family history of ischemic heart disease and other diseases of the circulatory system; Z98.890 Other specified postprocedural states
CPT/HCPCS: 71046; 71100; 96372

== ENCOUNTER 2019-08-16 05:53 | Emergency (ER) | payer MEDICAID ==
[~2019-08-16] VITALS: Ht 152.4 cm; Wt 77.0 kg
[~2019-08-16 05:53] MED LIST changes: +CYCL10TA9 PO; +METH4TAB PO
[2019-08-16] MEDS ORDERED: NS IV 1000 ML 1,000 ML IV ONE (06:09)
[2019-08-16] MEDS ORDERED: ORPHENADRINE 60 MG/2 ML (NORFLEX) AMP IV ONE (06:15)
[2019-08-16] MEDS ORDERED: PROMETHAZINE INJ 25 MG/ML (PHENERGAN) AMP IVP ONE (06:15)
[2019-08-16] MEDS ORDERED: CYCL10TA9 PO (07:31)
[2019-08-16] MEDS ORDERED: ONDA4TAB11 SL (07:31)
--- NOTE | 2019-08-16 07:31 | ED Headache ---
General Chief Complaint: Head/Cervical Problems Stated Complaint: TENSION HEADACHE Nursing Triage Note: VERBALIZES HAS A HX OF TENSION HEADACHES. HEADACHE STARTED AROUND 330 THIS AM, 800MG IBU TAKEN AT 0330, WITH NO RELIEF. NOW ASSOCIATED WITH NAUSEA AND VOMITING. Nursing Sepsis Screen: No Definite Risk Source: patient Exam Limitations: no limitations History of Present Illness Date Seen by Provider: Aug 16, 2019 Time Seen by Provider: 06:03 Initial Comments This 39-year-old woman presents to the emergency room with complaint of severe tension headache that starts at the base of her neck and wrapped supper around her head. She has history of similar headaches but they are rarely this severe. She has required treatment in the emergency room for similar headaches in the past. She took ibuprofen 800 mg at approximately 03:30 with insufficient relief. She has had some associated nausea and vomiting. She denies any visual changes or aura. She denies as she has an implantable control. Allergies and Home Medications Allergies Coded Allergies: No Known Drug Allergies (Unverified , 07/17/16) Home Medications Cyclobenzaprine HCl 10 Mg Tablet, 10 MG PO Q8H Prescribed by: JOSY JAMES on 11/20/182349 Cyclobenzaprine HCl 10 Mg Tablet, 10 MG PO Q8H PRN for SPASMS Prescribed by: REBECCA JACKSON on 08/16/19 0731 Docusate Sodium 100 Mg Capsule, 100 MG PO BID Prescribed by: RADHA SAAVEDRA on 07/22/16 0732 Ibuprofen 800 Mg Tablet, 800 MG PO Q6H Prescribed by: RADHA SAAVEDRA on 07/22/16 0732 Methylprednisolone 4 Mg Tab.ds.pk, 4 MG PO UD Prescribed by: JOSY JAMES on 11/20/182349 Ondansetron 4 Mg Tab.rapdis, 4 MG SL Q4H Prescribed by: REBECCA JACKSON on 08/16/19 0731 Oxycodone HCl/Acetaminophen 1 Each Tablet, 1-2 TAB PO Q4H PRN for PAIN Prescribed by: RADHA SAAVEDRA on 07/22/16 0732 Vit/Iron Fumarate/FA 1 Each Tablet, 1 EACH PO DAILY, (Reported) Vitamin B Complex 1 Each Tablet, 1 EACH PO DAILY, (Reported) Patient Home Medication List Home Medication List Reviewed: Yes Review of Systems Review of Systems Constitutional: no symptoms reported Eyes: No Symptoms Reported Ears, Nose, Mouth, Throat: no symptoms reported Respiratory: no symptoms reported Cardiovascular: no symptoms reported Gastrointestinal: see HPI Genitourinary: no symptoms reported : No Musculoskeletal: see HPI Skin: no symptoms reported Psychiatric/Neurological: See HPI Past Xqorfyg-Mkguci-Vohexm Hx Patient Social History Alcohol Use: Denies Use Recreational Drug Use: No Smoking Status: Current Everyday Smoker Type Used: Cigarettes 2nd Hand Smoke Exposure: Yes Recent Foreign Travel: No Contact w/Someone Who Travel: No Recent Infectious Disease Expo: No Recent Hopitalizations: No Physical Abuse: No Sexual Abuse: No Mistreated: No Fear: No Immunizations Up To Date Tetanus Booster (TDap): Less than 5yrs PED Vaccines UTD: Yes Date of Influenza Vaccine: May 01, 2019 Seasonal Allergies Seasonal Allergies: Yes Past Medical History Surgeries: Yes (D&C; X 2) Section Respiratory: No Cardiac: No Neurological: Yes Headaches /Migraines Reproductive Disorders: No Female Reproductive Disorders: Denies Sexually Transmitted Disease: No HIV/AIDS: No Genitourinary: No Gastrointestinal: Yes (OCC WITH ) Gastroesophageal Reflux Musculoskeletal: No Endocrine: No HEENT: No Loss of Vision: Bilateral Hearing Impairment: Denies Cancer: No Psychosocial: Yes (HX OF DEPRESSION-MILD) Depression Integumentary: No Blood Disorders: No Adverse Reaction/Blood Tranf: No (N/A) Family Medical History Cardiovascular disease 19 MOTHER FH: diverticulitis 19 FATHER Hypertension 19 FATHER 19 MOTHER Myocardial infarction 19 MOTHER No Pertinent Family Hx Physical Exam Vital Signs Vital Signs - First Documented 08/16/19 08/16/19 06:02 07:35 Temp 36.1 Pulse 91 Resp 22 B/P (MAP) 159/129 (139) Pulse Ox 99 O2 Delivery Room Air Capillary Refill : Less Than 3 Seconds Height, Weight, BMI Height: 5'7.00" Weight: 236lbs. 2.0oz. 107.852122uw; 33.00 BMI Method:Stated General Appearance: WD/WN, moderate distress (tearful) HEENT: PERRL/EOMI, normal ENT inspection, TMs normal, pharynx normal Neck: normal inspection, other (muscle tension in the paraspinous muscles bilaterally) Cardiovascular: regular rate, rhythm, no edema, no murmur Respiratory: lungs clear, normal breath sounds, no respiratory distress Extremities: normal inspection Psychiatric: alert, oriented x 3 Crainal Nerves: normal hearing, normal speech, PERRL Motor/Sensory: no motor deficit Skin: normal color, warm/dry Progress/Results/Core Measures Results/Orders My Orders Orders - REBECCA ALEXANDER MD Promethazine Injection (Phenergan Injec (08/16/19 06:15) Ns Iv 1000 Ml (Sodium Chloride 0.9%) (08/16/19 06:09) Orphenadrine Injection (Norflex Injectio (08/16/19 06:15) Ed Iv/Invasive Line Start (08/16/19 06:09) Medications Given in ED Current Medications Medications Dose Ordered Sig/Xavier Route Start Time Stop Time Status Last Admin Dose Admin Orphenadrine Citrate 60 mg ONCE ONCE IV 08/16/19 06:15 08/16/19 06:16 DC 08/16/19 06:18 60 MG Promethazine HCl 12.5 mg ONCE ONCE IVP 08/16/19 06:15 08/16/19 06:16 DC 08/16/19 06:17 12.5 MG Sodium Chloride 1,000 ml @ 0 mls/hr Q0M ONCE IV 08/16/19 06:09 08/16/19 06:11 DC 08/16/19 06:16 1,000 MLS/HR Vital Signs/I&O 08/16/19 08/16/19 06:02 07:35 Temp 36.1 36.1 Pulse 91 84 Resp 22 18 B/P (MAP) 159/129 (139) 139/90 (139) Pulse Ox 99 99 O2 Delivery Room Air Blood Pressure Mean: 139 Progress Progress Note : Progress Note Patient was treated with a liter of IV fluid, Norflex, and Phenergan. She had good improvement in her symptoms and requested dismissal home. Departure Impression Primary Impression: Tension type headache Qualified Codes: G44.209 - Tension-type headache, unspecified, not intractable Additional Impression: Nausea Disposition: 01 HOME, SELF-CARE Condition: Improved Departure-Patient Inst. Decision time for Depature: 07:28 Referrals: [facility]/JAIRO (PCP) Primary Care Physician VALENTÍN TONY (Family) Primary Care Physician Patient Instructions: Headache, Adult (DC) Add. Discharge Instructions: Drink plenty of clear liquids to stay well-hydrated. You may take ibuprofen up to 600 mg every 6 hours and Tylenol (acetaminophen) up to 1000 mg every 6 hours as needed for pain. Tylenol and ibuprofen may be used together. Gentle heat on your neck and back may help your muscles relax. Use Zofran as prescribed for nausea and vomiting and cyclobenzaprine as needed for muscle tension or spasm. Return to care or contact your Dr. with any further problems or concerns. All discharge instructions reviewed with patient and/or family. Voiced understanding. Scripts Ondansetron (Ondansetron Odt) 4 Mg Tab.rapdis 4 MG SL Q4H, #10 TAB Prov: REBECCA ALEXANDER MD 08/16/19 Cyclobenzaprine HCl (Cyclobenzaprine HCl) 10 Mg Tablet 10 MG PO Q8H PRN for SPASMS, #10 TAB 0 Refills Prov: REBECCA ALEXANDER MD 08/16/19 REBECCA ALEXANDER MD Aug 16, 2019 07:31
[2019-08-16 07:35] VITALS: BP 139/90
== END 2019-08-16 07:35 | disposition home or self-care (01) ==
LOC: EDUNIT# 05:53 → ER 05:55
DX: G44.209 Tension-type headache, unspecified, not intractable (principal); R11.0 Nausea; K21.9 Gastro-esophageal reflux disease without esophagitis; F32.9 Major depressive disorder, single episode, unspecified; F17.210 Nicotine dependence, cigarettes, uncomplicated; Z82.49 Family history of ischemic heart disease and other diseases of the circulatory system; Z79.52 Long term (current) use of systemic steroids; Z86.69 Personal history of other diseases of the nervous system and sense organs
CPT/HCPCS: 96361; 96374; 96375

== ENCOUNTER 2020-01-19 19:32 | Emergency (ER) | payer MEDICAID ==
[~2020-01-19] VITALS: Ht 152.4 cm; Wt 74.8 kg
[~2020-01-19 19:32] MED LIST changes: +ONDA4TAB11 SL
[2020-01-19] MEDS ORDERED: LORA-404 PO (20:27)
[2020-01-19 21:02] LABS: BILIRUBIN,URINE NEGATIVE (NEGATIVE); CLARITY,URINE CLEAR; COLOR,URINE YELLOW; GLUCOSE, URINE (UA) NEGATIVE (NEGATIVE); KETONES,URINE NEGATIVE (NEGATIVE); LEUKOCYTE ESTERASE ,URINE NEGATIVE (NEGATIVE); NITRITE,URINE NEGATIVE (NEGATIVE); PROTEIN,URINE NEGATIVE (NEGATIVE)
[2020-01-19 21:11] LABS: BASOPHILS % (AUTO) 0 % (0-10); EOSINOPHILS # (AUTO) 0.2 10^3/uL (0.0-0.3); EOSINOPHILS % (AUTO) 2 % (0-10); HEMATOCRIT 41 % (35-52); HEMOGLOBIN 14.2 G/DL (11.5-16.0); LYMPHOCYTES # (AUTO) 2.1 X 10^3 (1.0-4.0); LYMPHOCYTES % (AUTO) 27 % (12-44); MEAN CORPUSCULAR HEMOGLOBIN 33 PG (25-34); MEAN CORPUSCULAR HGB CONC 35 G/DL (32-36); MEAN CORPUSCULAR VOLUME 96 FL (80-99); MEAN PLATELET VOLUME 10.1 FL (7.4-10.4); MONOCYTES # (AUTO) 0.7 X 10^3 (0.0-1.0); MONOCYTES % (AUTO) 9 % (0-12); NEUTROPHILS # (AUTO) 4.8 X 10^3 (1.8-7.8); NEUTROPHILS % (AUTO) 62 % (42-75); PLATELET COUNT 215 10^3/uL (130-400); RED CELL DISTRIBUTION WIDTH 12.2 % (10.0-14.5); WHITE BLOOD COUNT 7.8 10^3/uL (4.3-11.0)
[2020-01-19 21:13] LABS: BACTERIA,URINE TRACE /HPF; RBC,URINE 0-2 /HPF
[2020-01-19 21:22] LABS: ALBUMIN 4.3 GM/DL (3.2-4.5)
[2020-01-19 21:24] LABS: GLUCOSE 98 MG/DL (70-105)
[2020-01-19 21:25] LABS: TOTAL PROTEIN 7.5 GM/DL (6.4-8.2)
[2020-01-19 21:26] LABS: BILIRUBIN,TOTAL 0.3 MG/DL (0.1-1.0); CARBON DIOXIDE 21 MMOL/L (21-32)
[2020-01-19 21:28] LABS: ALKALINE PHOSPHATASE 94 U/L (40-136); CREATININE SERUM 0.73 MG/DL (0.60-1.30); GFR ESTIMATED > 60
[2020-01-19 21:29] LABS: BUN/CREATININE RATIO 16
[2020-01-19 21:31] LABS: ALANINE AMINOTRANSFERASE 89 U/L (0-55); MAGNESIUM 1.9 MG/DL (1.6-2.4)
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
--- OUTSIDE RECORDS SUMMARY | 2020-01-19 21:35 | XMS REPORT ---
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 Encounter for AMBER CARNEY (no shan ne) [facility] - procedure gynecological (no phone) 11-23-2018 examination (general) - (routine) without 11-23-2018 abnormal findings 11-20-2018 Patient encounter no information no name no or ganization name procedure 11-20-2018 Patient encounter no information no name no or ganization name procedure 11-08-2018 Patient encounter no information no name no or ganization name procedure 09-17-2018 Patient encounter no information no name no or ganization name - procedure 09-17-2018 09-08-2018 Patient encounter no information no name no or ganization name - procedure 09-08-2018 07-30-2018 Patient encounter no information no name no or ganization name procedure 07-16-2018 Patient encounter no information no name no or ganization name procedure 09-19-2019 Telephone encounter no information VALENTÍN TONY (no [facility] phone) (no phone) 08-18-2019 Telephone encounter no information VALENTÍN TONY (no [facility] phone) (no phone) 2019 Telephone encounter no information VALENTÍN TONY [facility] (no phone) no information Encounter for no name no organization name gynecological examination (general) (routine) without abnormal findings Medical Equipment The data below is from unstructured sourcesNo Medical Equipment Information available Payers Normalized Payer Value Unknown no information ([id number]) Evaluation note Note Type Note Facility Evaluation No Assessments Information Available A scension note [facility] ([id number]) History general Narrative - Reported Note Type Note Facility History general Narrative - Reported Type Surgical DNC 2010 History Surgical 2012,2015 History Hospitaliz surgeries ation History Hospitaliz vomiting 2013 ation History [facility] ([id number]) Advance Directives Directive Response Recor ded Date/Time Advance Directives No 2:12pm Health Care Power of Hotbed Transfer Operator No 05/26/16 2:12pm Organ Donor Yes 05/26/16 2:12pm Resuscitation Status Full Code 05/26/16 2:12pm Directive Response Recor ded Date/Time Advance Directives No 7:20am Health Care Power of Hotbed Transfer Operator No 07/21/16 7:20am Organ Donor Yes 07/21/16 7:20am Resuscitation Status Full Code 07/21/16 7:20am Directive Response Recor ded Date Advance Directives N 2:08pm Organ Donor Y 01/30/13 2 :08pm Directive Response Recor ded Date/Time Advance Directives No 12:14pm Organ Donor Yes 11/05/14 12:14pm Resuscitation Status Full Code 11/05/14 12:14pm Directive Response Recor ded Date/Time Advance Directives No 10:50pm Health Care Power of Hotbed Transfer Operator No 11/20/18 10:50pm Organ Donor Yes 11/20/18 10:50pm Resuscitation Status Full Code 11/20/18 10:50pm Advance Directive Response Recorded Date/Time Advance Directives No 2018 6:02am Health Care Power of Hotbed Transfer Operator No August 16, 2019 6:02am Organ Donor Yes August 16, 2019 6:02am Resuscitation Status Full Code August 16, 2019 6:02am Discharge Instructions No hospital discharge instructions. Patient Instructions Physician Instructions New, Converted or Re-Newed RX: RX on Chart Patient Instructions: as directed Return to The Hospital For: as directed Discharge Diet: No Restrictions Activity as Tolerated: No Follow Up Appt: RTC 1 week for incision check. Call to make follow up appt. for patient in 4 weeks. Wound Care: Remove fabian, apply benzoin and steri strips. Activity Per routine post instructions. Please call in RX to patient pharmacy. Diet as tolerated Patient may shower or tub bathe as desired. Continue home meds Care Plan Patient Instructions:: as directed No hospital discharge instructions.No hospital discharge instruction information available. Summary Purpose eClinicalWorks Submission Chief Complaint and Reason for Visit Chief Complaint Chest Wall/Rib Pain Reason for Visit Left-sided chest wa ll pain Chief Complaint Head/Cervical Proble ms Reason for Visit [id number] Additional Source Comments This clinical document has been generated using Fablistic software that has been certified by the Office of the National Coordinator for Health Information Technology (ONC 15.99.04.3023.Diam.31.00.0.938985) and the National Committee for [employer] (NCQA, as an eMeasure certified technology). FOR RECORDS PERTAINING TO PATIENTS WHO ARE OR HAVE BEEN ENROLLED IN A CHEMICAL D EPENDENCY/SUBSTANCE ABUSE PROGRAM, SOME INFORMATION MAY BE OMITTED. This clinica l summary was aggregated from multiple sources. Caution should be exercised in using it in the provision of clinical care. This summary normalizes information from multiple sources, and as a consequence, information in this document may ma terially change the coding, format and clinical context of patient data. In luiz tion, data may be omitted in some cases. CLINICAL DECISIONS SHOULD BE BASED ON T HE PRIMARY CLINICAL RECORDS. [employer] provides no warranty or guara ntee of the accuracy or completeness of information in this document.The followi ng information is based on time limited clinical information UNRECOGNIZED CONTENT PROVIDED BELOW FOR UNRECOGNIZED SECTION MEDICAL (GENERAL) HISTORY Type Description Date Surgical History DNC 201 0 Surgical History 2012 Hospitalization History surgeries Hospitalization History vomitting 2012 Type Description Date Surgical History DNC 201 0 Surgical History 2012,2015 Hospitalization History surgeries Hospitalization History vomiting 2012 UNRECOGNIZED CONTENT PROVIDED BELOW FOR UNRECOGNIZED SECTION REASON FOR VISIT Establish Care, Concerns with high anxiety and unable to calm down when occurs, Physical form needs completed for school, ABoggsLPNRequests return callcoughing for the past week. tried some zyrtec for one noc...didnt help...so she quit taki ng it. kbullardrncoughFlu shotAnxiety, PT feels the hydroxyzine has been giving her a lag feeling the next day. -Ashok MAsore throat/fim in mouth for a week and very fatigue. Just started Paxil two weeks ago, tongue tender and sores in m outh. Robert Holt
--- OUTSIDE RECORDS SUMMARY | 2020-01-19 21:35 | XMS REPORT ---
Author Author Cheyanne PICHARDO Organization [facility] Address [address] [place] [address] Care Team Providers Care Apple Press Operator Name Role Phone MARINOTAMERADAVID Unavailable PROBLEMS Type Condition ICD9-CM Code [id number] Code Onset Dates Condition S tatus SNOMED Code Problem Anxiety F41.9 Active 69796268 Problem Generalized anxiety disorder F41.1 A ctive 73707127 ALLERGIES No Information ENCOUNTERS Encounter Location Date Diagnosis [facility] [address] [address] Apr, [facility] [address] [address] Feb, Nexplanon insertion Z30.017 [facility] [address] [address] Jan, [facility] [address] [address] Nov, Well woman exam with routine gynecological exam Z01.419 ; Routine screening for STI (sexually transmitted infection) Z11.3 ; Vaginal bassam B37.3 ; Encounter for initial prescription of transdermal patch hormonal contraceptive device Z30.016 and Trichomonal infection A59.9 [facility] [address] [place] [id number] [address] [place] [address] Oct, Bronchitis J40 [facility] [address] [address] Aug, Generalized anxiety disorder F41.1 [facility] [address] [place] [id number] [place] [address] 14 Jul, 2018 Oral thrush B37.0 [place] [address] [address] Jun, Generalized anxiety disorder F41.1 [facility] [address] [address] May, Encounter for immunization Z 23 [facility] [address] [address] Apr, Anxiety F41.9 [facility] [address] [address] Mar, Anxiety F41.9 [place] [address] [address] Mar, [facility] [address] [address] Mar, Seasonal allergic rhinitis, unspecified trigger J30.2 and Cough R05 [place] [address] [address] Oct, [facility] [address] [address] Oct, 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 [facility] [address] [address] Oct, 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 [place] [address] [address] Oct, School physical exam Z02.0 ; Visit for TB skin test Z11.1 and Encounter for immunization Z23 [facility] [address] [address] Jun, Pharyngitis due to other org anism J02.8 [facility] [address] [address] Feb, Constipation 564.00 [place] [address] [address] Nov, [facility] [address] [id number] [address] [place] [address], [place] [address] Nov, [facility] [address] [id number] [address] [place] [address], [place] [address] Oct, [facility] [address] [id number] [address] [place] [address], [place] [address] Oct, [facility] [address] [id number] [address] [place] [address], [place] [address] Sep, [facility] [address] [id number] [address] [place] [address], [place] [address] Sep, [facility] [address] [id number] [address] [place] [address], [place] [address] Aug, [facility] [address] [id number] [address] [place] [address], [place] [address] Aug, [facility] [address] [id number] [address] [place] [address], [place] [address] Jun, [facility] [address] [id number] [address] [place] [address], [place] [address] Jun, [facility] [address] [id number] [address] [place] [address], [place] [address] May, [facility] [address] [id number] [address] [place] [address], [place] [address] May, [facility] [address] [id number] [address] [place] [address], [place] [address] Apr, [facility] [address] [id number] [address] [place] [address], [place] [address] Apr, [facility] [address] [id number] [address] [place] [address], [place] [address] Mar, [facility] [address] [id number] [address] [place] [address], [place] [address] Mar, [facility] [address] [id number] [address] [place] [address] Mar, [facility] [address] [id number] [address] [place] [address] Mar, [facility] [address] [id number] [address] [place] [address] Mar, [facility] [address] [id number] [address] [place] [address] Mar, [facility] [address] [id number] [address] [place] [address] Feb, [facility] [address] [id number] [address] [place] [address] Feb, [facility] [address] [id number] [address] [place] [address] Jan, [facility] [address] [id number] [address] [place] [address] Jan, [facility] [address] [id number] [address] [place] [address] Jun, [facility] [address] [id number] [address] [place] [address] Jun, IMMUNIZATIONS No Known Immunizations SOCIAL HISTORY Never Assessed REASON FOR VISIT PLAN OF CARE VITAL SIGNS MEDICATIONS Unknown Medications RESULTS No Results PROCEDURES Procedure Date Ordered Result Body Site PSYTX PT&/FAMILY 45 MINUTES February 21, 2014 INSTRUCTIONS MEDICATIONS ADMINISTERED No Known Medications MEDICAL (GENERAL) HISTORY Type Description Date Surgical History DNC 2009 Surgical History Hospitalization History surgeries Hospitalization History vomiting 2013
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
--- OUTSIDE RECORDS SUMMARY | 2020-01-19 21:36 | XMS REPORT ---
Author Author Cheyanne RED UVALDO [facility] Address [address] [place] [address] Care Team Providers Care Mophead Trimmer And Wrapper Name Role Phone TEOFILOKINSEYUVALDO Unavailable PROBLEMS Type Condition ICD9-CM Code HML90-AH Code Onset Dates Condition S tatus SNOMED Code Problem Anxiety F41.9 Active 14267703 Problem Generalized anxiety disorder F41.1 A ctive 06271635 ALLERGIES No Information ENCOUNTERS Encounter Location Date Diagnosis [place] [address] [place] [id number] [address] [place] [address] Feb, Nexplanon insertion Z30.017 [place] [address] [address] Jan, [facility] [address] [place] [address] [id number] [address] [place] [address] Nov, Well woman exam with routine gynecological exam Z01.419 ; Routine screening for STI (sexually transmitted infection) Z11.3 ; Vaginal bassam B37.3 ; Encounter for initial prescription of transdermal patch hormonal contraceptive device Z30.016 and Trichomonal infection A59.9 [facility] [address] [place] [address] Oct, Bronchitis J40 [facility] [address] [place] [address] Aug, Generalized anxiety disorder F41.1 [facility] [address] [place] [id number] [address] [place] [address] Jul, Oral thrush B37.0 [facility] [address] [place] [address] [id number] [address] [place] [address] Jun, Generalized anxiety disorder F41.1 [facility] [address] [address] May, Encounter for immunization Z 23 [facility] [address] [address] Apr, Anxiety F41.9 [facility] [address] [address] Mar, Anxiety F41.9 [facility] [address] [address] Mar, [facility] [address] [address] Mar, Seasonal allergic rhinitis, unspecified trigger J30.2 and Cough R05 [place] [address] [address] Oct, [place] [address] [address] Oct, 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 [facility] [address] [address] Oct, 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 [facility] [address] [address] Oct, School physical exam Z02.0 ; Visit for TB skin test Z11.1 and Encounter for immunization Z23 [facility] [address] [id number] [address] [place] [address] Jun, Pharyngitis due to other org anism J02.8 [place] [address] [address] Feb, Constipation 564.00 [place] [address] [address] Nov, [place] [address] [address] Nov, [facility] [address] [id number] [address] [place] [address], [place] [address] Oct, [facility] [address] [id number] [address] [place] [address], [place] [address] Oct, [facility] [address] [id number] [address] [place] [address], [place] [address] Sep, [facility] [address] [id number] [address] [place] [address], [place] [address] Sep, [facility] [address] [id number] [address] [place] [address], [place] [address] Aug, [facility] [address] [id number] [address] [place] [address], [place] [address] Aug, [facility] [address] [id number] [address] [place] [address], [place] [address] Jun, [facility] [address] [id number] [address] [place] [address], [place] [address] Jun, [facility] [address] [id number] [address] [place] [address], [place] [address] May, [facility] [address] [id number] [address] [place] [address], [place] [address] May, [facility] [address] [id number] [address] [place] [address], [place] [address] Apr, [facility] [address] [id number] [address] [place] [address], [place] [address] Apr, [facility] [address] [id number] [address] [place] [address], [place] [address] Mar, [facility] [address] [id number] [address] [place] [address], [place] [address] Mar, [facility] [address] [id number] [address] [place] [address], [place] [address] Mar, [facility] [address] [id number] [address] [place] [id number] Mar, [facility] [address] [id number] [address] [place] [address] Mar, [facility] [address] [id number] [address] [place] [address] Mar, [facility] [address] [id number] [address] [place] [address] Feb, [facility] [address] [id number] [address] [place] [address] Feb, [facility] [address] [id number] [address] [place] [phone] Jan, [facility] [address] [id number] [address] [place] [address] Jan, [facility] [address] [id number] [address] [place] [address] Jun, [facility] [address] [id number] [address] [place] [phone] Jun, IMMUNIZATIONS No Known Immunizations SOCIAL HISTORY Never Assessed REASON FOR VISIT PLAN OF CARE VITAL SIGNS Height 61 in 2014-03-23 Weight 134.25 lbs 2014-03-23 Temperature 99.2 degrees Fahrenheit 2014-03-23 Heart Rate 88 bpm 2014-03-23 Respiratory Rate 24 2014-03-23 Blood pressure systolic 138 mmHg 2014-03-23 Blood pressure diastolic 98 mmHg 2014-03-23 MEDICATIONS No Known Medications RESULTS No Results PROCEDURES No Known procedures INSTRUCTIONS MEDICATIONS ADMINISTERED No Known Medications MEDICAL (GENERAL) HISTORY Type Description Date Surgical History DNC 2009 Surgical History Hospitalization History surgeries Hospitalization History vomiting 2012
--- OUTSIDE RECORDS SUMMARY | 2020-01-19 21:36 | XMS REPORT ---
Author Author Cheyanne RED UVALDO [facility] Address [address] [place] [address] Care Team Providers Care General Dentist/Owner Name Role Phone TEOFILOKINSEYUVALDO Unavailable PROBLEMS Type Condition ICD9-CM Code SOK20-GT Code Onset Dates Condition S tatus SNOMED Code Problem Anxiety F41.9 Active 46035594 Problem Generalized anxiety disorder F41.1 A ctive [id number] ALLERGIES No Information ENCOUNTERS Encounter Location Date Diagnosis [place] [address] [place] [id number] [address] [place] [address] Feb, Nexplanon insertion Z30.017 [place] [address] [address] Jan, [facility] [address] [place] [id number] [address] [place] [address] Nov, Well woman exam with routine gynecological exam Z01.419 ; Routine screening for STI (sexually transmitted infection) Z11.3 ; Vaginal bassam B37.3 ; Encounter for initial prescription of transdermal patch hormonal contraceptive device Z30.016 and Trichomonal infection A59.9 [facility] [address] [place] [address] Oct, Bronchitis J40 [facility] [address] [place] [address] Aug, Generalized anxiety disorder F41.1 [facility] [address] [place] [id number] [address] [place] [address] Jul, Oral thrush B37.0 [facility] [address] [place] [id number] [address] [place] [address] Jun, Generalized anxiety disorder F41.1 [facility] [address] [address] May, Encounter for immunization Z 23 [facility] [address] [address] Apr, Anxiety F41.9 [facility] [address] [address] Mar, Anxiety F41.9 [facility] [address] [address] Mar, [facility] [address] [address] Mar, Seasonal allergic rhinitis, unspecified trigger J30.2 and Cough R05 [place] [address] [address] Oct, [place] [address] [address] Oct, 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 [facility] [address] [address] Oct, 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 [facility] [address] [address] Oct, School physical exam Z02.0 ; Visit for TB skin test Z11.1 and Encounter for immunization Z23 [facility] [address] [place] [address] [id number] [place] [address] Jun, Pharyngitis due to other org anism J02.8 [place] [address] [address] Feb, Constipation 564.00 [place] [address] [address] Nov, [place] [address] [address] Nov, [facility] [address] [id number] [address] [place] [address], [place] [address] Oct, [facility] [address] [id number] [address] [place] [address], [place] [address] Oct, [facility] [address] [id number] [address] [place] [address], [place] [address] Sep, [facility] [address] [id number] [address] [place] [address], [place] [address] Sep, [facility] [address] [id number] [address] [place] [address], [place] [address] Aug, [facility] [address] [id number] [address] [place] [address], [place] [address] Aug, [facility] [address] [id number] [address] [place] [address], [place] [address] Jun, [facility] [address] [id number] [address] [place] [address], [place] [address] Jun, [facility] [address] [id number] [address] [place] [address], [place] [address] May, [facility] [address] [id number] [address] [place] [address], [place] [address] May, [facility] [address] [id number] [address] [place] [address], [place] [address] Apr, [facility] [address] [id number] [address] [place] [address], [place] [address] Apr, [facility] [address] [id number] [address] [place] [address], [place] [address] Mar, [facility] [address] [id number] [address] [place] [address], [place] [address] Mar, [facility] [address] [id number] [address] [place] [address], [place] [address] Mar, [facility] [address] [id number] [address] [place] [address] Mar, [facility] [address] [id number] [address] [place] [address] Mar, [facility] [address] [id number] [address] [place] [address] Mar, [facility] [address] [id number] [address] [place] [address] Feb, [facility] [address] [id number] [address] [place] [address] Feb, [facility] [address] [id number] [address] [place] [phone] Jan, [facility] [address] [id number] [address] [place] [address] Jan, [facility] [address] [facility] [id number] [address] [place] [address] Jun, [facility] [address] [id number] [address] [place] [address] Jun, IMMUNIZATIONS No Known Immunizations SOCIAL HISTORY Never Assessed REASON FOR VISIT PLAN OF CARE VITAL SIGNS MEDICATIONS No Known Medications RESULTS No Results PROCEDURES No Known procedures INSTRUCTIONS MEDICATIONS ADMINISTERED No Known Medications MEDICAL (GENERAL) HISTORY Type Description Date Surgical History DNC 2009 Surgical History Hospitalization History surgeries Hospitalization History vomiting 2012
--- OUTSIDE RECORDS SUMMARY | 2020-01-19 21:36 | XMS REPORT ---
Author Author Cheyanne PICHARDO [facility] Address [address] [place] [address] Care Team Providers Care Oracle Financial Application Developer Name Role Phone MARINOTAMERADAVID Unavailable PROBLEMS Type Condition ICD9-CM Code VCS09-VX Code Onset Dates Condition S tatus SNOMED Code Problem Anxiety F41.9 Active 53603053 Problem Generalized anxiety disorder F41.1 A ctive 67252133 ALLERGIES No Information ENCOUNTERS Encounter Location Date Diagnosis [place] [address] [place] [id number] [address] [place] [address] Feb, Nexplanon insertion Z30.017 [place] [address] [place] [id number] [address] [place] [address] Jan, [facility] [address] [place] [id number] [address] [place] [address] Nov, Well woman exam with routine gynecological exam Z01.419 ; Routine screening for STI (sexually transmitted infection) Z11.3 ; Vaginal bassam B37.3 ; Encounter for initial prescription of transdermal patch hormonal contraceptive device Z30.016 and Trichomonal infection A59.9 [facility] [address] [place] [address] [id number] [address] [place] [address] Oct, Bronchitis J40 [facility] [address] [facility] [id number] [address] [place] [address] Aug, Generalized anxiety disorder F41.1 [facility] [address] [place] [id number] [address] [place] [address] 14 Jul, 2018 Oral thrush B37.0 [facility] [address] [place] [id number] [address] [place] [address] Jun, Generalized anxiety disorder F41.1 [facility] [address] [address] May, Encounter for immunization Z 23 [facility] [address] [address] Apr, Anxiety F41.9 [facility] [address] [address] Mar, Anxiety F41.9 [facility] [address] [address] Mar, [facility] [address] [address] Mar, Seasonal allergic rhinitis, unspecified trigger J30.2 and Cough R05 [facility] [address] [address] Oct, [place] [address] [address] Oct, 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 [facility] [address] [address] Oct, 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 [facility] [address] [address] Oct, School physical exam Z02.0 ; Visit for TB skin test Z11.1 and Encounter for immunization Z23 [facility] [address] [address] Jun, Pharyngitis due to other org anism J02.8 [place] [address] [address] Feb, Constipation 564.00 [facility] [address] [address] Nov, [facility] [address] [address] Nov, [facility] [address] [id number] [address] [place] [address], [place] [address] Oct, [facility] [address] [id number] [address] [place] [address], [place] [address] Oct, [facility] [address] [id number] [address] [place] [address], [place] [address] Sep, [facility] [address] [id number] [address] [place] [address], [place] [address] Sep, [facility] [address] [id number] [address] [place] [address], [place] [address] Aug, [facility] [address] [id number] [address] [place] [address], [place] [address] Aug, [facility] [address] [id number] [address] [place] [address], [place] [address] Jun, [facility] [address] [id number] [address] [place] [address], [place] [address] Jun, [facility] [address] [id number] [address] [place] [address], [place] [address] May, [facility] [address] [id number] [address] [place] [address], [place] [address] May, [facility] [address] [id number] [address] [place] [address], [place] [address] Apr, [facility] [address] [id number] [address] [place] [address], [place] [address] Apr, [facility] [address] [id number] [address] [place] [address], [place] [address] Mar, [facility] [address] [id number] [address] [place] [address], [place] [address] Mar, [facility] [address] [id number] [address] [place] [address], [place] [address] Mar, [facility] [address] [id number] [address] [place] [address] Mar, [facility] [address] [id number] [address] [place] [address] Mar, [facility] [address] [id number] [address] [place] [address] Mar, [facility] [address] [id number] [address] [place] [address] Feb, [facility] [address] [id number] [address] [place] [address] Feb, [facility] [address] [facility] [id number] [address] [place] [address] Jan, [facility] [address] [id number] [address] [place] [address] Jan, [facility] [address] [facility] [id number] [address] [place] [address] Jun, [facility] [address] [id number] [address] [place] [address] Jun, IMMUNIZATIONS No Known Immunizations SOCIAL HISTORY Never Assessed REASON FOR VISIT PLAN OF CARE VITAL SIGNS MEDICATIONS No Known Medications RESULTS No Results PROCEDURES No Known procedures INSTRUCTIONS MEDICATIONS ADMINISTERED No Known Medications MEDICAL (GENERAL) HISTORY Type Description Date Surgical History DNC 2009 Surgical History Hospitalization History surgeries Hospitalization History vomiting 2012
--- OUTSIDE RECORDS SUMMARY | 2020-01-19 21:36 | XMS REPORT ---
Author Author Cheyanne RED UVALDO [facility] Address [address] [place] [address] Care Team Providers Care Inweaver Name Role Phone TEOFILOKINSEYUVALDO Unavailable PROBLEMS Type Condition ICD9-CM Code ROA17-QS Code Onset Dates Condition S tatus SNOMED Code Problem Anxiety F41.9 Active 27621837 Problem Generalized anxiety disorder F41.1 A ctive 05732171 ALLERGIES No Information ENCOUNTERS Encounter Location Date Diagnosis [place] [address] [place] [id number] [address] [place] [address] Feb, Nexplanon insertion Z30.017 [place] [address] [address] Jan, [facility] [address] [place] [address] [id number] [address] [place] [address] Nov, Well woman exam with routine gynecological exam Z01.419 ; Routine screening for STI (sexually transmitted infection) Z11.3 ; Vaginal bassam B37.3 ; Encounter for initial prescription of transdermal patch hormonal contraceptive device Z30.016 and Trichomonal infection A59.9 [facility] [address] [place] [address] Oct, Bronchitis J40 [facility] [address] [place] [address] Aug, Generalized anxiety disorder F41.1 [facility] [address] [place] [address] [id number] [address] [place] [address] Jul, Oral thrush B37.0 [facility] [address] [place] [address] [id number] [address] [place] [address] Jun, Generalized anxiety disorder F41.1 [facility] [address] [address] May, Encounter for immunization Z 23 [facility] [address] [address] Apr, Anxiety F41.9 [facility] [address] [address] Mar, Anxiety F41.9 [facility] [address] [address] Mar, [facility] [address] [address] Mar, Seasonal allergic rhinitis, unspecified trigger J30.2 and Cough R05 [place] [address] [address] Oct, [place] [address] [address] Oct, 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 [facility] [address] [address] Oct, 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 [facility] [address] [address] Oct, School physical exam Z02.0 ; Visit for TB skin test Z11.1 and Encounter for immunization Z23 [facility] [address] [place] [address] [id number] [place] [address] Jun, Pharyngitis due to other org anism J02.8 [place] [address] [address] Feb, Constipation 564.00 [place] [address] [address] Nov, [place] [address] [address] Nov, [facility] [address] [id number] [address] [place] [address], [place] [address] Oct, [facility] [address] [id number] [address] [place] [address], [place] [address] Oct, [facility] [address] [id number] [address] [place] [address], [place] [address] Sep, [facility] [address] [id number] [address] [place] [address], [place] [address] Sep, [facility] [address] [id number] [address] [place] [address], [place] [address] Aug, [facility] [address] [id number] [address] [place] [address], [place] [address] Aug, [facility] [address] [id number] [address] [place] [address], [place] [address] Jun, [facility] [address] [id number] [address] [place] [address], [place] [address] Jun, [facility] [address] [id number] [address] [place] [address], [place] [address] May, [facility] [address] [id number] [address] [place] [address], [place] [address] May, [facility] [address] [id number] [address] [place] [address], [place] [address] Apr, [facility] [address] [id number] [address] [place] [address], [place] [address] Apr, [facility] [address] [id number] [address] [place] [address], [place] [address] Mar, [facility] [address] [id number] [address] [place] [address], [place] [address] Mar, [facility] [address] [id number] [address] [place] [address], [place] [address] Mar, [facility] [address] [id number] [address] [place] [address] Mar, [facility] [address] [id number] [address] [place] [address] Mar, [facility] [address] [id number] [address] [place] [address] Mar, [facility] [address] [id number] [address] [place] [address] Feb, [facility] [address] [id number] [address] [place] [address] Feb, [facility] [address] [id number] [address] [place] [address] Jan, [facility] [address] [id number] [address] [place] [address] Jan, [facility] [address] [id number] [address] [place] [address] Jun, [facility] [address] [id number] [address] [place] [address] Jun, IMMUNIZATIONS No Known Immunizations SOCIAL HISTORY Never Assessed REASON FOR VISIT PLAN OF CARE VITAL SIGNS Height 61.5 in 2014-07-04 Weight 146.5 lbs 2014-07-04 Temperature 99.4 degrees Fahrenheit 2014-07-04 Heart Rate 98 bpm 2014-07-04 Respiratory Rate 28 2014-07-04 Blood pressure systolic 148 mmHg 2014-07-04 Blood pressure diastolic 104 mmHg 2014-07-04 MEDICATIONS No Known Medications RESULTS No Results PROCEDURES No Known procedures INSTRUCTIONS MEDICATIONS ADMINISTERED No Known Medications MEDICAL (GENERAL) HISTORY Type Description Date Surgical History DNC 2009 Surgical History Hospitalization History surgeries Hospitalization History vomiting 2012
--- OUTSIDE RECORDS SUMMARY | 2020-01-19 21:36 | XMS REPORT ---
Author Author Cheyanne Sykes Organization [facility] Address [address] [place] [address] Care Team Providers Care Cardiology Consultant Name Role Phone EMILIANO Sykes Unavailable PROBLEMS Type Condition ICD9-CM Code DYA89-KK Code Onset Dates Condition S tatus SNOMED Code Problem Anxiety F41.9 Active 32090548 Problem Generalized anxiety disorder F41.1 A ctive [id number] ALLERGIES No Information ENCOUNTERS Encounter Location Date Diagnosis [place] [address] [address] Feb, Nexplanon insertion Z30.017 [place] [address] [address] Jan, [place] [address] [address] Nov, Well woman exam with routine gynecological exam Z01.419 ; Routine screening for STI (sexually transmitted infection) Z11.3 ; Vaginal bassam B37.3 ; Encounter for initial prescription of transdermal patch hormonal contraceptive device Z30.016 and Trichomonal infection A59.9 [facility] [address] [place] [id number] [place] [address] Oct, Bronchitis J40 [facility] [address] [place] [id number] [address] [place] [address] Aug, Generalized anxiety disorder F41.1 [facility] [address] [address] Jul, Oral thrush B37.0 [place] [address] [place] [id number] [address] [place] [address] Jun, Generalized anxiety disorder F41.1 [facility] [address] [address] May, Encounter for immunization Z 23 [facility] [address] [address] Apr, Anxiety F41.9 [facility] [address] [address] Mar, Anxiety F41.9 [facility] [address] [address] Mar, [facility] [address] [address] Mar, Seasonal allergic rhinitis, unspecified trigger J30.2 and Cough R05 [place] [address] [address] Oct, [place] [address] [address] Oct, 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 [facility] [address] [address] Oct, 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 [place] [address] [address] Oct, School physical exam Z02.0 ; Visit for TB skin test Z11.1 and Encounter for immunization Z23 [facility] [address] [place] [id number] [address] [place] [address] Jun, Pharyngitis due to other org anism J02.8 [place] [address] [address] Feb, Constipation 564.00 [place] [address] [address] Nov, [facility] [address] [address] Nov, [facility] [address] [id number] [address] [place] [address], [place] [address] Oct, [facility] [address] [id number] [address] [place] [address], [place] [address] Oct, [facility] [address] [id number] [address] [place] [address], [place] [address] Sep, [facility] [address] [id number] [address] [place] [address], [place] [address] Sep, [facility] [address] [id number] [address] [place] [address], [place] [address] Aug, [facility] [address] [id number] [address] [place] [address], [place] [address] Aug, [facility] [address] [id number] [address] [place] [address], [place] [address] Jun, [facility] [address] [id number] [address] [place] [address], [place] [address] Jun, [facility] [address] [id number] [address] [place] [address], [place] [address] May, [facility] [address] [id number] [address] [place] [address], [place] [address] May, [facility] [address] [id number] [address] [place] [address], [place] [address] Apr, [facility] [address] [id number] [address] [place] [address], [place] [address] Apr, [facility] [address] [id number] [address] [place] [address], [place] [address] Mar, [facility] [address] [id number] [address] [place] [address], [place] [address] Mar, [facility] [address] [id number] [address] [place] [address], [place] [address] Mar, [facility] [address] [id number] [address] [place] [address] Mar, [facility] [address] [id number] [address] [place] [address] Mar, [facility] [address] [id number] [address] [place] [address] Mar, [facility] [address] [id number] [address] [place] [address] Feb, [facility] [address] [id number] [address] [place] [address] Feb, [facility] [address] [id number] [address] [place] [address] Jan, [facility] [address] [id number] [address] [place] [id number] Jan, [facility] [address] [id number] [address] [place] [address] Jun, [facility] [address] [id number] [address] [place] [address] Jun, IMMUNIZATIONS No Known Immunizations SOCIAL HISTORY Never Assessed REASON FOR VISIT PLAN OF CARE VITAL SIGNS Height 61 in 2014-10-25 Weight 149 lbs 2014-10-25 Temperature 97.3 degrees Fahrenheit 2014-10-25 Heart Rate 84 bpm 2014-10-25 Respiratory Rate 20 2014-10-25 Blood pressure systolic 120 mmHg 2014-10-25 Blood pressure diastolic 82 mmHg 2014-10-25 MEDICATIONS No Known Medications RESULTS No Results PROCEDURES No Known procedures INSTRUCTIONS MEDICATIONS ADMINISTERED No Known Medications MEDICAL (GENERAL) HISTORY Type Description Date Surgical History DNC 2009 Surgical History Hospitalization History surgeries Hospitalization History vomiting 2012
--- OUTSIDE RECORDS SUMMARY | 2020-01-19 21:36 | XMS REPORT ---
Author Author Cheyanne RED UVALDO [facility] Address [address] [place] [address] Care Team Providers Care Diet Tech Name Role Phone TEOFILOKINSEYUVALDO Unavailable PROBLEMS Type Condition ICD9-CM Code ICI54-YO Code Onset Dates Condition S tatus SNOMED Code Problem Anxiety F41.9 Active 38919378 Problem Generalized anxiety disorder F41.1 A ctive 42687051 ALLERGIES No Information ENCOUNTERS Encounter Location Date Diagnosis [place] [address] [place] [id number] [address] [place] [address] Feb, Nexplanon insertion Z30.017 [place] [address] [address] Jan, [facility] [address] [place] [id number] [address] [place] [address] Nov, Well woman exam with routine gynecological exam Z01.419 ; Routine screening for STI (sexually transmitted infection) Z11.3 ; Vaginal bassam B37.3 ; Encounter for initial prescription of transdermal patch hormonal contraceptive device Z30.016 and Trichomonal infection A59.9 [facility] [address] [place] [address] Oct, Bronchitis J40 [facility] [address] [place] [address] Aug, Generalized anxiety disorder F41.1 [facility] [address] [place] [id number] [address] [place] [address] Jul, Oral thrush B37.0 [facility] [address] [place] [id number] [place] [address] Jun, Generalized anxiety disorder F41.1 [facility] [address] [address] May, Encounter for immunization Z 23 [facility] [address] [address] Apr, Anxiety F41.9 [facility] [address] [address] Mar, Anxiety F41.9 [facility] [address] [address] Mar, [facility] [address] [address] Mar, Seasonal allergic rhinitis, unspecified trigger J30.2 and Cough R05 [place] [address] [address] Oct, [place] [address] [address] Oct, 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 [facility] [address] [address] Oct, 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 [facility] [address] [address] Oct, School physical exam Z02.0 ; Visit for TB skin test Z11.1 and Encounter for immunization Z23 [facility] [address] [place] [id number] [place] [address] Jun, Pharyngitis due to other org anism J02.8 [place] [address] [address] Feb, Constipation 564.00 [place] [address] [address] Nov, [place] [address] [address] Nov, [facility] [address] [id number] [address] [place] [address], [place] [address] Oct, [facility] [address] [id number] [address] [place] [address], [place] [address] Oct, [facility] [address] [id number] [address] [place] [address], [place] [address] Sep, [facility] [address] [id number] [address] [place] [address], [place] [address] Sep, [facility] [address] [id number] [address] [place] [address], [place] [address] Aug, [facility] [address] [id number] [address] [place] [address], [place] [address] Aug, [facility] [address] [id number] [address] [place] [address], [place] [address] Jun, [facility] [address] [id number] [address] [place] [address], [place] [address] Jun, [facility] [address] [id number] [address] [place] [address], [place] [address] May, [facility] [address] [id number] [address] [place] [address], [place] [address] May, [facility] [address] [id number] [address] [place] [address], [place] [address] Apr, [facility] [address] [id number] [address] [place] [address], [place] [address] Apr, [facility] [address] [id number] [address] [place] [address], [place] [address] Mar, [facility] [address] [id number] [address] [place] [address], [place] [address] Mar, [facility] [address] [id number] [address] [place] [address], [place] [address] Mar, [facility] [address] [id number] [address] [place] [phone] Mar, [facility] [address] [id number] [address] [place] [phone] Mar, [facility] [address] [id number] [address] [place] [phone] Mar, [facility] [address] [id number] [address] [place] [address] Feb, [facility] [address] [id number] [address] [place] [phone] Feb, [facility] [address] [id number] [address] [place] [phone] Jan, [facility] [address] [id number] [address] [place] [address] Jan, [facility] [address] [id number] [address] [place] [address] Jun, [facility] [address] [id number] [address] [place] [phone] Jun, IMMUNIZATIONS No Known Immunizations SOCIAL HISTORY Never Assessed REASON FOR VISIT PLAN OF CARE VITAL SIGNS Height 61 in 2014-08-24 Weight 148.25 lbs 2014-08-24 Temperature 99 degrees Fahrenheit 2014-08-24 Heart Rate 80 bpm 2014-08-24 Respiratory Rate 24 2014-08-24 Blood pressure systolic 124 mmHg 2014-08-24 Blood pressure diastolic 92 mmHg 2014-08-24 MEDICATIONS No Known Medications RESULTS No Results PROCEDURES No Known procedures INSTRUCTIONS MEDICATIONS ADMINISTERED No Known Medications MEDICAL (GENERAL) HISTORY Type Description Date Surgical History DNC 2009 Surgical History 2012,2015 Hospitalization History surgeries Hospitalization History vomiting 2012
--- OUTSIDE RECORDS SUMMARY | 2020-01-19 21:36 | XMS REPORT ---
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 Name Role Phone MARINOTAMERADAVID Unavailable PROBLEMS Type Condition ICD9-CM Code [id number] Code Onset Dates Condition S tatus SNOMED Code Problem Anxiety F41.9 Active [id number] Problem Generalized anxiety disorder F41.1 A ctive [id number] ALLERGIES No Information ENCOUNTERS Encounter Location Date Diagnosis [place] [address] [place] [id number] [place] [phone] Feb, Nexplanon insertion Z30.017 [place] [address] [place] [id number] [place] [phone] Jan, [facility] [address] [id number] [place] [phone] Nov, Well woman exam with routine gynecological exam Z01.419 ; Routine screening for STI (sexually transmitted infection) Z11.3 ; Vaginal bassam B37.3 ; Encounter for initial prescription of transdermal patch hormonal contraceptive device Z30.016 and Trichomonal infection A59.9 [facility] [address] [place] [address] [id number] [address] [place] [phone] Oct, Bronchitis J40 [facility] [address] [facility] [id number] [address] [place] [phone] Aug, Generalized anxiety disorder F41.1 [facility] [address] [place] [address] [id number] [address] [place] [phone] 14 Jul, 2018 Oral thrush B37.0 [place] [address] [place] [id number] [address] [place] [phone] Jun, Generalized anxiety disorder F41.1 [facility] [address] [address] May, Encounter for immunization Z 23 [facility] [address] [address] Apr, Anxiety F41.9 [facility] [address] [address] Mar, Anxiety F41.9 [facility] [address] [phone] Mar, [facility] [address] [phone] Mar, Seasonal allergic rhinitis, unspecified trigger J30.2 and Cough R05 [facility] [address] [phone] Oct, [place] [address] [address] Oct, 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 [facility] [address] [phone] Oct, 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 [facility] [address] [phone] Oct, School physical exam Z02.0 ; Visit for TB skin test Z11.1 and Encounter for immunization Z23 [facility] [address] [phone] Jun, Pharyngitis due to other org anism J02.8 [place] [address] [phone] Feb, Constipation 564.00 [facility] [address] [address] Nov, [facility] [address] [address] Nov, [facility] [address] [id number] [address] [place] [address], [place] [phone] Oct, [facility] [address] [id number] [address] [place] [address], [place] [phone] Oct, [facility] [address] [id number] [address] [place] [address], [place] [phone] Sep, [facility] [address] [id number] [address] [place] [address], [place] [phone] Sep, [facility] [address] [id number] [address] [place] [address], [place] [phone] Aug, [facility] [address] [id number] [address] [place] [address], [place] [phone] Aug, [facility] [address] [id number] [address] [place] [address], [place] [phone] Jun, [facility] [address] [id number] [address] [place] [address], [place] [phone] Jun, [facility] [address] [id number] [address] [place] [address], [place] [phone] May, [facility] [address] [id number] [address] [place] [address], [place] [phone] May, [facility] [address] [id number] [address] [place] [address], [place] [phone] Apr, [facility] [address] [id number] [address] [place] [address], [place] [phone] Apr, [facility] [address] [id number] [address] [place] [address], [place] [phone] Mar, [facility] [address] [id number] [address] [place] [address], [place] [phone] Mar, [facility] [address] [id number] [address] [place] [address], [place] [phone] Mar, [facility] [address] [id number] [address] [place] [phone] Mar, [facility] [address] [id number] [address] [place] [phone] Mar, [facility] [address] [id number] [address] [place] [phone] Mar, [facility] [address] [id number] [address] [place] [phone] Feb, [facility] [address] [id number] [address] [place] [phone] Feb, [facility] [address] [id number] [address] [place] [phone] Jan, [facility] [address] [id number] [address] [place] [phone] Jan, [facility] [address] [facility] [id number] [address] [place] [phone] Jun, [facility] [address] [id number] [address] [place] [phone] Jun, IMMUNIZATIONS No Known Immunizations SOCIAL HISTORY Never Assessed REASON FOR VISIT PLAN OF CARE VITAL SIGNS MEDICATIONS No Known Medications RESULTS No Results PROCEDURES Procedure Date Ordered Result Body Site PSYTX PT&/FAMILY 45 MINUTES Mar 21, 2014 INSTRUCTIONS MEDICATIONS ADMINISTERED No Known Medications MEDICAL (GENERAL) HISTORY Type Description Date Surgical History DNC 2009 Surgical History Hospitalization History surgeries Hospitalization History vomiting 2012
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
[2020-01-19 21:51] LABS: TSH (THYROID ANALYZER) 3.04 UIU/ML (0.35-4.94)
[2020-01-19 22:07] LABS: CHLORIDE 101 MMOL/L (98-107); POTASSIUM 3.9 MMOL/L (3.6-5.0); SODIUM 136 MMOL/L (135-145)
[2020-01-19] MEDS ORDERED: LISI1TAB29 PO (22:55)
[2020-01-19 22:56] VITALS: BP 141/103
--- NOTE | 2020-01-19 22:56 | ED Cardiac General ---
History of Present Illness General Chief Complaint: Cardiac/General Problems Stated Complaint: HIGH BP 163/113 Nursing Triage Note: PATIENT STATES THAT AT NOON SHE BEGAN TO EXPERIENCE LIGHT-HEADEDNESS. HER BLOOD PRESSURE WAS 150/113 AND AT 1530 SHE TOOK METOPROLOL 25MG. SHE DOES NOT HAVE A SCRIPT FOR BP MEDICATION. SHE EXPERIENCED RELIEF OF HER SYMPTOMS AND THEN IT RETURNED AROUND 1900. HER BLOOD PRESSURE AT THAT TIME WAS 160/123 PER HER HOME BP MONITOR. SHE ALSO EXPERIENCED LEFT ARM TINGLING, BUT CLARIFIES THAT SHE HAD HAD THAT "OFF AND ON FOR YEARS". SHE STATES THAT ABOUT A WEEK AGO, SHE SAW [facility] AND HER BLOOD PRESSURE WAS ELEVATED AT THAT TIME. SHE WAS TOLD THAT SHE SHOULD "KEEP AN EYE ON IT". Source: patient Exam Limitations: no limitations History of Present Illness Date Seen by Provider: Jan 20, 2020 Time Seen by Provider: 20:10 Initial Comments This 29-year-old woman presents to the emergency room with concerns about her blood pressure. She notes blood pressure at home of 153/113. She has been known to have hypertension but has not yet been treated for it. Today she developed lightheadedness and tingling in her left arm. This prompted concern. She took metoprolol 25 mg that she had at home. Her blood pressure decreased to 130/98 but then rebounded to 162/123 as measured at home. Her arm tingling is actually an intermittent problem that she has had for several years. When asked about triggers for hypertension she reports taking a supplement called Truvy recently that contains coffee mean extract. She started this about one week a go. She denies as she has a hormonal implant. She reports alcohol consumption about twice per week. Allergies and Home Medications Allergies Coded Allergies: No Known Drug Allergies (Unverified , 07/17/16) Home Medications Lisinopril/Hydrochlorothiazide 1 Each Tablet, 1 EACH PO DAILY Prescribed by: REBECCA JACKSON on 01/19/20 5050 Lorazepam 0.5 Mg Tablet, 0.5 MG PO DAILY PRN for ANXIETY, (Reported) Patient Home Medication List Home Medication List Reviewed: Yes Review of Systems Review of Systems Constitutional: no symptoms reported EENTM: No Symptoms Reported Respiratory: No Symptoms Reported Cardiovascular: See HPI Gastrointestinal: No Symptoms Reported Genitourinary: No Symptoms Reported Musculoskeletal: no symptoms reported Skin: no symptoms reported Psychiatric/Neurological: See HPI Endocrine: No Symptoms Reported Hematologic/Lymphatic: No Symptoms Reported Past Ogfbefx-Gtcphy-Dxfihk Hx Patient Social History Alcohol Use: Rarely Uses Number of Drinks Today: 0 Recreational Drug Use: No Smoking Status: Current Everyday Smoker Type Used: Cigarettes 2nd Hand Smoke Exposure: Yes Recent Foreign Travel: No Contact w/Someone Who Travel: No Recent Infectious Disease Expo: No Recent Hopitalizations: No Physical Abuse: No Sexual Abuse: No Mistreated: No Fear: No Immunizations Up To Date Tetanus Booster (TDap): Less than 5yrs PED Vaccines UTD: Yes Date of Influenza Vaccine: May 01, 2019 Seasonal Allergies Seasonal Allergies: Yes Past Medical History Surgeries: Yes (D&C; X 2) Section Respiratory: No Cardiac: No Neurological: Yes Headaches /Migraines : No Reproductive Disorders: No Female Reproductive Disorders: Denies Sexually Transmitted Disease: No HIV/AIDS: No Genitourinary: No Gastrointestinal: Yes Gastroesophageal Reflux Musculoskeletal: Yes (left arm radicular symptoms) Endocrine: No HEENT: No Loss of Vision: Bilateral Hearing Impairment: Denies Cancer: No Psychosocial: Yes (HX OF DEPRESSION-MILD) Anxiety, Depression Integumentary: No Blood Disorders: No Adverse Reaction/Blood Tranf: No (N/A) Family Medical History Reviewed Nursing Family Hx Cardiovascular disease 19 MOTHER FH: diverticulitis 19 FATHER Hypertension 19 FATHER 19 MOTHER Myocardial infarction 19 MOTHER No Pertinent Family Hx Physical Exam Vital Signs Vital Signs - First Documented 01/19/20 01/19/20 19:56 22:56 Temp 36.8 Pulse 78 Resp 18 B/P (MAP) 161/115 (130) Pulse Ox 98 O2 Delivery Room Air Capillary Refill : Less Than 3 Seconds Height, Weight, BMI Height: 5'7.00" Weight: 236lbs. 2.0oz. 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-XII Norm as Tested, Other (normal finger to nose and heel to espinosa) Skin: Normal Color, Warm/Dry Progress/Results/Core Measures Results/Orders Lab Results Laboratory Tests Test 01/19/20 20:55 Range/Units White Blood Count 7.8 4.3-11.0 10^3/uL Red Blood Count 4.29 L 4.35-5.85 10^6/uL Hemoglobin 14.2 11.5-16.0 G/DL Hematocrit 41 35-52 % Mean Corpuscular Volume 96 80-99 FL Mean Corpuscular Hemoglobin 33 25-34 PG Mean Corpuscular Hemoglobin Concent 35 32-36 G/DL Red Cell Distribution Width 12.2 10.0-14.5 % Platelet Count 215 130-400 10^3/uL Mean Platelet Volume 10.1 7.4-10.4 FL Neutrophils (%) (Auto) 62 42-75 % Lymphocytes (%) (Auto) 27 12-44 % Monocytes (%) (Auto) 9 0-12 % Eosinophils (%) (Auto) 2 0-10 % Basophils (%) (Auto) 0 0-10 % Neutrophils # (Auto) 4.8 1.8-7.8 X 10^3 Lymphocytes # (Auto) 2.1 1.0-4.0 X 10^3 Monocytes # (Auto) 0.7 0.0-1.0 X 10^3 Eosinophils # (Auto) 0.2 0.0-0.3 10^3/uL Basophils # (Auto) 0.0 0.0-0.1 10^3/uL Urine Color YELLOW Urine Clarity CLEAR Urine pH 7.0 5-9 Urine Specific [place] <=1.005 1.016-1.022 Urine Protein NEGATIVE NEGATIVE Urine Glucose (UA) NEGATIVE NEGATIVE Urine Ketones NEGATIVE NEGATIVE Urine Nitrite NEGATIVE NEGATIVE Urine Bilirubin NEGATIVE NEGATIVE Urine Urobilinogen 0.2 < = 1.0 MG/DL Urine Leukocyte Esterase NEGATIVE NEGATIVE Urine RBC (Auto) 1+ H NEGATIVE Urine RBC 0-2 /HPF Urine WBC NONE /HPF Urine Crystals NONE /LPF Urine Bacteria TRACE /HPF Urine Casts NONE /LPF Urine Mucus NEGATIVE /LPF Urine Culture Indicated NO Sodium Level 136 135-145 MMOL/L Potassium Level 3.9 3.6-5.0 MMOL/L Chloride Level 101 98-107 MMOL/L Carbon Dioxide Level 21 21-32 MMOL/L Anion Gap 14 5-14 MMOL/L Blood Urea Nitrogen 12 7-18 MG/DL Creatinine 0.73 0.60-1.30 MG/DL Estimat Glomerular Filtration Rate > 60 BUN/Creatinine Ratio 16 Glucose Level 98 70-105 MG/DL Calcium Level 9.0 8.5-10.1 MG/DL Corrected Calcium 8.8 8.5-10.1 MG/DL Magnesium Level 1.9 1.6-2.4 MG/DL Total Bilirubin 0.3 0.1-1.0 MG/DL Aspartate Amino Transf (AST/SGOT) 131 H 5-34 U/L Alanine Aminotransferase (ALT/SGPT) 89 H 0-55 U/L Alkaline Phosphatase 94 40-136 U/L Total Protein 7.5 6.4-8.2 GM/DL Albumin 4.3 3.2-4.5 GM/DL TSH [place] Testing 3.04 0.35-4.94 UIU/ML Human Chorionic Gonadotropin, Quant < 5 <5 MIU/ML Serum Test, Qualitative NEGATIVE NEGATIVE My Orders Orders - REBECCA ALEXANDER MD Cbc With Automated Diff (01/19/20 20:29) Comprehensive Metabolic Panel (01/19/20 20:29) Hcg,Qualitative Serum (01/19/20 20:29) Magnesium (01/19/20 20:29) Thyroid Analyzer (01/19/20 20:29) Ua Culture If Indicated (01/19/20 20:29) Ed Iv/Invasive Line Start (01/19/20 20:29) Ekg Tracing (01/19/20 20:29) Hcg,Quantitative (01/19/20 21:43) Vital Signs/I&O 01/19/20 01/19/20 19:56 22:56 Temp 36.8 36.8 Pulse 78 93 Resp 18 18 B/P (MAP) 161/115 (130) 141/103 Pulse Ox 98 O2 Delivery Room Air Blood Pressure Mean: 130 Progress Progress Note : Progress Note Labs were reviewed. Serum hCG screen was positive. This was followed by a serum quantitative study. This was negative. The initial screening was likely a false positive. Bedside ultrasound was also performed to evaluate uterus. The uterus appeared empty. Patient was advised to discontinue her supplement containing coffee being extracted. She will start lisinopril with hydrochlorothiazide in the morning as prescribed. I advised her to follow-up with her primary care provider regarding her upper extremity radicular symptoms as she may need imaging of the neck. Departure Impression Primary Impression: Hypertension Qualified Codes: I10 - Essential (primary) hypertension Additional Impression: Paresthesia of left arm Disposition: 01 HOME, SELF-CARE Condition: Stable Departure-Patient Inst. Decision time for Depature: 22:54 Referrals: [facility]/JAIRO (PCP) Primary Care Physician VALENTÍN TONY (Family) Primary Care Physician Patient Instructions: High Blood Pressure in Adults, Paresthesias (DC) Add. Discharge Instructions: Start your lisinopril with hydrochlorothiazide tomorrow. Follow-up with your primary care provider within the next week. Stop the Truvy supplement you have been taking may be contributing to your blood pressure. Follow-up with your primary care provider regarding the paresthesias in her left arm. Return to care if you have worsening symptoms. All discharge instructions reviewed with patient and/or family. Voiced understanding. Scripts Lisinopril/Hydrochlorothiazide (Lisinopril-Hctz 10-12.5 mg Tab) 1 Each Tablet 1 EACH PO DAILY, #30 TAB Prov: REBECCA ALEXANDER MD 01/19/20 Copy Copies To 1: NIKOS BHATIA JOSHUA T MD Jan 19, 2020 22:56
== END 2020-01-19 23:01 | disposition home or self-care (01) ==
LOC: EDUNIT# 19:32 → ER 19:33
DX: I10 Essential (primary) hypertension (principal); R20.2 Paresthesia of skin; F41.9 Anxiety disorder, unspecified; F32.9 Major depressive disorder, single episode, unspecified; F17.210 Nicotine dependence, cigarettes, uncomplicated; Z82.49 Family history of ischemic heart disease and other diseases of the circulatory system
CPT/HCPCS: 36415; 80053; 81000; 83735; 84443; 84702; 84703; 85025; 93005

== ENCOUNTER → 2021-05-12 | Outpatient (CLI) | payer MEDICAID ==
[~2021-05-12] MED LIST changes: +LISI1TAB29 PO; +LORA-404 PO; -OXYC-465 PO; +OXYC-556 PO; +methylPREDNISolone 125 MG (Solu-MEDROL) VIAL IM ONE; +methylPREDNISolone 125 MG (Solu-MEDROL) VIAL ONE
== END ==
LOC: 4THo 23:03
PROVIDERS: ATTEND Emergency Medicine
DX: Z51.6 Encounter for desensitization to allergens (principal)

== ENCOUNTER 2021-06-27 00:53 | Emergency (ER) | payer MEDICAID ==
[~2021-06-27] VITALS: Ht 60 cm; Wt 73.0 kg
[~2021-06-27 00:53] MED LIST changes: -methylPREDNISolone 125 MG (Solu-MEDROL) VIAL IM ONE; -methylPREDNISolone 125 MG (Solu-MEDROL) VIAL ONE
[2021-06-27] MEDS ORDERED: LIDOCAINE 1% INJ 20 ML 20 ML VIAL INJ ONE (01:30)
[2021-06-27] MEDS ORDERED: TETANUS,DIPTH,PERTUSS P/F (BOOSTRIX) 0.5 ML VIAL IM ONE (01:30)
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
[2021-06-27] MEDS ORDERED: CEPH500T PO (02:48)
[2021-06-27 03:08] VITALS: BP 191/137
== END 2021-06-27 03:08 | disposition home or self-care (01) ==
LOC: EDUNIT# 00:53 → ER 00:58
DX: S31.821A Laceration without foreign body of left buttock, initial encounter (principal); F41.9 Anxiety disorder, unspecified; Z23 Encounter for immunization; Z79.899 Other long term (current) drug therapy; Y04.0XXA Assault by unarmed brawl or fight, initial encounter
CPT/HCPCS: 12001; 90715

== ENCOUNTER → 2021-12-19 | Outpatient (CLI) | payer OTHER, MEDICAID ==
[~2021-12-19] MED LIST changes: +CEPH500T PO; +CYCL10TA25 PO; -CYCL10TA9 PO; -LISI1TAB29 PO; +LISI1TAB44 PO
== END ==
LOC: ORTHO 08:32
PROVIDERS: ATTEND Orthopaedic Surgery
DX: M65.311 Trigger thumb, right thumb (principal)
CPT/HCPCS: 20552; G0463

== ENCOUNTER → 2022-10-14 | Outpatient (CLI) | payer OTHER ==
[~2022-10-14] MED LIST changes: +FLUT9.9S NS; +OXYC5TAB PO; +VILA20TA PO
== END ==
LOC: ORTHO 14:15
PROVIDERS: ATTEND Orthopaedic Surgery
DX: Z47.89 Encounter for other orthopedic aftercare (principal)
CPT/HCPCS: 99213

== ENCOUNTER 2022-10-16 05:28 | Outpatient (CLI) | payer OTHER, MEDICAID ==
[~2022-10-16] VITALS: Ht 152.4 cm; Wt 75.4 kg
[~2022-10-16 05:28] MED LIST changes: -FLUT9.9S NS; -OXYC5TAB PO; -VILA20TA PO
[2022-10-16] MEDS ORDERED: VILA20TA PO (08:46)
[2022-10-16] MEDS ORDERED: FLUT9.9S NS (08:46)
== END 2022-10-16 09:02 | disposition home or self-care (01) ==
LOC: PREOP 05:28
PROVIDERS: ATTEND Orthopaedic Surgery
DX: Z01.818 Encounter for other preprocedural examination (principal)

== ENCOUNTER 2022-10-20 10:08 | Day surgery (SDC) | payer MEDICAID, OTHER ==
[~2022-10-20] VITALS: Ht 152.4 cm; Wt 75.4 kg
[2022-10-20] VITALS (8 sets, daily range): BP systolic 123–140; BP diastolic 85–99
[~2022-10-20 10:08] MED LIST changes: +FLUT9.9S NS; +VILA20TA PO
[2022-10-20] MEDS ORDERED: LACTATED RINGERS 1,000 ML IV PRN (10:30)
[2022-10-20] MEDS ORDERED: ceFAZolin INJECTION 1,000 MG in NS (IVPB) 50 ML IV ONE (10:30)
[2022-10-20] MEDS ORDERED: BUPIVACAINE 0.25% 30 ML (SENSORCAINE) VIAL ONE (10:45)
[2022-10-20] MEDS ORDERED: NEO/POLY/BAC (NEOSPORIN) OINT 15 GM TUBE ONE (10:45)
[2022-10-20] MEDS ORDERED: LIDOCAINE 1% INJ 20 ML VIAL ONE (10:46)
[2022-10-20] MEDS ORDERED: fentaNYL INJ 100 MCG/2 ML AMP ONE (11:03)
[2022-10-20] MEDS ORDERED: PROPOFOL INJECTION 50 ML IV ONE (11:03)
[2022-10-20] MEDS ORDERED: MIDAZOLAM 2 MG/2 ML (VERSED) VIAL ONE (11:03)
--- NOTE | 2022-10-20 11:58 | Progress Note-Pre Operative ---
Pre-Operative Progress Note Date of Available H&P: Oct 14, 2022 Date H&P Reviewed: Oct 20, 2022 Time H&P Reviewed: 11:50 History & Physical: H&P Reviewed, Patient Examed, No changes noted Pre-Operative Diagnosis: Right Trigger Thumb SARAH TRIMBLE MD Oct 20, 2022 11:58
[2022-10-20] MEDS ORDERED: NEO/POLY/BAC (NEOSPORIN) OINT 15 GM TUBE TOP ONE (12:30)
[2022-10-20] MEDS ORDERED: BUPIVACAINE 0.25% 30 ML (SENSORCAINE) VIAL INJ ONE (12:31)
[2022-10-20] MEDS ORDERED: LIDOCAINE 1% INJ 20 ML VIAL INJ ONE (12:32)
--- NOTE | 2022-10-20 12:44 | Operative Report - Ortho ---
Operative Report Surgeon (s)/Care Transitions Manager (s) Surgeon SARAH TRIMBLE MD Care Transitions Manager n/a Pre-Operative Diagnosis Right Trigger Thumb Post-Operative Diagnosis same Operative Report Date of Procedure: Oct 20, 2022 Name of Procedure Performed: Release of Right Trigger Thumb Description & Findings After obtaining informed consent and marking the patient in the preoperative holding area, the patient received IV antibiotics and was taken to the operating room. Surgical timeout was taken. The right upper extremity was prepped and draped in usual sterile fashion. Incision was made at the base of the thumb centered over the maria luz. Blunt dissection was carried down to the maria luz. Retractors were placed for protection of the digital nerves. Beginning proximally and working distally the maria luz was divided. Thumb was put through motion with smooth motion of the tendon and no palpable catch. Probe was used to explore the tendon and it appeared healthy. Wound was lavaged with normal saline. Wound was closed with 4-0 nylon sutures. Dressed with xeroform, 4x4s, jesusita, cast padding, and cassie wrap. Patient tolerated the procedure well and was stable to the recovery room. Anesthesia Type MAC plus local Estimated Blood Loss minimal Specimen(s) collected/removed None SARAH TRIMBLE MD Oct 20, 2022 12:44
[2022-10-20] MEDS ORDERED: OXYC5TAB PO (12:47)
--- NOTE | 2022-10-20 12:52 | Anesthesia-General Post-Op ---
MAC Patient Condition Mental Status/LOC: Same as Preop Cardiovascular: Satisfactory Nausea/Vomiting: Absent Respiratory: Satisfactory Pain: Controlled Complications: Absent Post Op Complications Complications None Follow Up Care/Instructions Patient Instructions None needed. Anesthesiology Discharge Order Discharge Order Patient is doing well in PACU with no complaints, stable vital signs, no apparent adverse anesthesia problems. No complications reported per nursing. NAWAF WELLS DO Oct 20, 2022 12:52
[2022-10-20] MEDS ORDERED: ONDANSETRON 4 MG/2 ML (SDV) Z0FRAN IVP PRN (13:00)
[2022-10-20] MEDS ORDERED: morphine INJ 10 MG/ML 1ML (SYR OR VIAL) IVP ONE (13:00)
[2022-10-20] MEDS ORDERED: oxyCODONE/APAP 5/325MG (PERCOCET 5) TABLET ONE (13:42)
[2022-10-20] MEDS ORDERED: oxyCODONE/APAP 5/325MG (PERCOCET 5) TABLET PO ONE (13:45)
== END 2022-10-20 14:05 | disposition home or self-care (01) ==
LOC: SDC 10:08
PROVIDERS: ATTEND Orthopaedic Surgery
DX: M65.311 Trigger thumb, right thumb (principal); F17.210 Nicotine dependence, cigarettes, uncomplicated; E66.9 Obesity, unspecified; Z68.32 Body mass index [BMI] 32.0-32.9, adult
CPT/HCPCS: 84703; 87081

== ENCOUNTER → 2022-11-04 | Outpatient (CLI) | payer MEDICAID, OTHER ==
[~2022-11-04] MED LIST changes: +OXYC5TAB PO
== END ==
LOC: ORTHO 11:02
PROVIDERS: ATTEND Orthopaedic Surgery
DX: Z98.890 Other specified postprocedural states (principal)
CPT/HCPCS: 99213

== ENCOUNTER → 2022-12-16 | Outpatient (CLI) | payer OTHER | LOC: ORTHO 14:28 | PROVIDERS: ATTEND Orthopaedic Surgery | DX: Z47.89 Encounter for other orthopedic aftercare (principal) ==